=== PATIENT | male | born 1970 | race American Indian/Alaskan Native ===

== ENCOUNTER 2017-07-13 04:38 | Emergency (ER) | payer SELFPAY ==
[2017-07-13] MEDS ORDERED: ASPIRIN PO ONE (05:39)
[2017-07-13 07:36] LABS: Hemoglobin 15.4 gm/dl (11.8-15.2); Mean Corpuscular HGB Conc 33 % (32-34); Mean Corpuscular Hemoglobin 30 pg (28-32); Mean Corpuscular Volume 90 fl (84-94); Red Cell Distribution Width 14.1 % (13.2-15.2)
[2017-07-13 07:40] LABS: BUN/Creatinine Ratio 18; Blood Urea Nitrogen 25 mg/dL (9-20); Hemolysis Index 394
[2017-07-13 09:01] VITALS: BP 172/118
[2017-07-13 10:10] LABS: Basophils % (Manual) 0 % (0.0-1.8); Total Cells Counted 100
[2017-07-13 10:11] LABS: Platelet Estimate Consistent w Auto; RBC Morphology Normal
[2017-07-13 11:02] LABS: Platelet Count 180 K/mm3 (140-440)
--- NOTE | 2017-07-13 18:39 | Emergency Department Report ---
ED Chest Pain HPI - General Chief Complaint: Chest Pain Stated Complaint: CHEST PAIN Time Seen by Provider: 07/13/17 18:21 Source: patient Mode of arrival: Stretcher Limitations: No Limitations - History of Present Illness Initial Comments: Mr. Dela Cruz is a 46-year-old male with history of hypertension, diabetes and seizure disorder. He said at 4 AM he had gradual onset of left-sided chest pain. Left arm numbness. He had associated cough nonproductive. He also had sore throat. +malaise. He also has had chills. He was concerned that his blood pressure was high. He had his blood pressure checked by EMS, systolic blood pressure that time was 210 mmHg. Patient has nondescriptive constant chest pain since 4 AM. Chest pain is not associated with exertion. Chest pain is worse with cough. - Related Data Home Medications Medication Instructions Recorded Confirmed Last Taken levETIRAcetam [Keppra TAB] 1,000 mg PO BID 11/14/15 07/13/17 11/13/15 Clonidine 0.2 mg PO HS 07/13/17 07/13/17 Unknown Lisinopril 20 mg PO HS 07/13/17 07/13/17 Unknown Previous Rx's Medication Instructions Recorded Last Taken Type Acetaminophen/Codeine [Tylenol 2 tab PO Q6H PRN #20 tab 07/13/17 Unknown Rx /Codeine # 3 tab] predniSONE [Deltasone] 60 mg PO QDAY 4 Days tab 07/13/17 Unknown Rx Allergies Allergy/AdvReac Type Severity Reaction Status Date / Time iodine Allergy Hives Verified 02/09/15 13:46 lisinopril Allergy Shortness Verified 07/20/15 21:37 of Breath Penicillins Allergy Rash Verified 02/09/15 13:46 shellfish derived Allergy Itching Verified 02/09/15 13:46 Heart Score - HEART Score History: Slightly suspicious EKG: Normal Age: 45-65 Risk factors: 1-2 risk factors Troponin: < normal limit HEART Score: 2 ED Review of Systems ROS: Stated complaint: CHEST PAIN Other details as noted in HPI Comment: All other systems reviewed and negative Constitutional: denies: fever, malaise Cardiovascular: chest pain ED Past Medical Hx - Past Medical History Hx Hypertension: Yes Hx Congestive Heart Failure: No Hx Diabetes: Yes (controlled by diet) Hx Seizures: Yes Hx Asthma: No Hx COPD: No Additional medical history: VSD MURMUR - Social History Smoking Status: Never Smoker Substance Use Type: None - Medications Home Medications: Home Medications Medication Instructions Recorded Confirmed Last Taken Type levETIRAcetam [Keppra TAB] 1,000 mg PO BID 11/14/15 07/13/17 11/13/15 History Acetaminophen/Codeine [Tylenol 2 tab PO Q6H PRN #20 tab 07/13/17 Unknown Rx /Codeine # 3 tab] Clonidine 0.2 mg PO HS 07/13/17 07/13/17 Unknown History Lisinopril 20 mg PO HS 07/13/17 07/13/17 Unknown History predniSONE [Deltasone] 60 mg PO QDAY 4 Days tab 07/13/17 Unknown Rx ED Physical Exam - General Limitations: No Limitations General appearance: alert, in no apparent distress - Head Head exam: Present: atraumatic, normocephalic - Eye Eye exam: Present: normal appearance - ENT ENT exam: Present: mucous membranes moist - Neck Neck exam: Present: normal inspection - Respiratory Respiratory exam: Present: normal lung sounds bilaterally. Absent: respiratory distress, wheezes, rales, rhonchi - Cardiovascular Cardiovascular Exam: Present: regular rate, normal rhythm, normal heart sounds. Absent: bradycardia, tachycardia, systolic murmur, diastolic murmur, rubs, gallop - GI/Abdominal GI/Abdominal exam: Present: soft, normal bowel sounds. Absent: distended, tenderness, guarding, rebound - Rectal Rectal exam: Present: deferred - Extremities Exam Extremities exam: Present: normal inspection, full ROM, normal capillary refill , other (left arm: Full range of motion, no tenderness no edemac 2+ radial pulse ). Absent: tenderness - Back Exam Back exam: Present: normal inspection - Neurological Exam Neurological exam: Present: alert, oriented X3 - Psychiatric Psychiatric exam: Present: normal affect, normal mood - Skin Skin exam: Present: warm, dry, intact, normal color. Absent: rash ED Course Vital Signs 07/13/17 07/13/17 05:26 08:56 Temperature 98.3 F Pulse Rate 81 75 Respiratory 18 Rate Blood Pressure 170/113 172/118 O2 Sat by Pulse 100 Oximetry JERRY score - Jerry Score Age > 65: (0) No Aspirin use within the Past 7 Days: (0) No 3 or more CAD Risk Factors: (0) No 2 or more Angina events in past 24 hrs: (0) No Known CAD with more than 50% Stenosis: (0) No Elevated Cardiac Markers: (0) No ST Deviation Greater than 0.5mm: (0) No JERRY Score: 0 ED Medical Decision Making - Lab Data Result diagrams: 07/13/17 07:00 07/13/17 07:00 Vital Signs - 24 hr 07/13/17 07/13/17 05:26 08:56 Temperature 98.3 F Pulse Rate 81 75 Respiratory 18 Rate Blood Pressure 170/113 172/118 O2 Sat by Pulse 100 Oximetry Laboratory Results - last 24 hr 07/13/17 07/13/17 07/13/17 07:00 07:00 07:00 WBC 10.4 RBC 5.20 H Hgb 15.4 H Hct 47.0 H MCV 90 MCH 30 MCHC 33 RDW 14.1 Plt Count 180 Add Manual Diff Complete Total Counted 100 Seg Neuts % (Manual) 83.0 H Band Neutrophils % 3.0 Lymphocytes % (Manual) 7.0 L Reactive Lymphs % (Man) 0 Monocytes % (Manual) 5.0 Eosinophils % (Manual) 1.0 Basophils % (Manual) 0 Metamyelocytes % 1.0 Myelocytes % 0 Promyelocytes % 0 Blast Cells % 0 Nucleated RBC % Not Reportable Seg Neutrophils # Man 0.0 L Band Neutrophils # 0.0 Lymphocytes # (Manual) 0.0 L Abs React Lymphs (Man) 0.0 Monocytes # (Manual) 0.0 Eosinophils # (Manual) 0.0 Basophils # (Manual) 0.0 Metamyelocytes # 0.0 Myelocytes # 0.0 Promyelocytes # 0.0 Blast Cells # 0.0 WBC Morphology Not Reportable Hypersegmented Neuts Not Reportable Hyposegmented Neuts Not Reportable Hypogranular Neuts Not Reportable Smudge Cells Not Reportable Toxic Granulation Not Reportable Toxic Vacuolation Not Reportable Dohle Bodies Not Reportable Pelger-Huet Anomaly Not Reportable Meliza Rods Not Reportable Platelet Estimate Consistent w auto Clumped Platelets Not Reportable Plt Clumps, EDTA Not Reportable Large Platelets Not Reportable Giant Platelets Not Reportable Platelet Satelliting Not Reportable Plt Morphology Comment Not Reportable RBC Morphology Normal Dimorphic RBCs Not Reportable Polychromasia Not Reportable Hypochromasia Not Reportable Poikilocytosis Not Reportable Anisocytosis Not Reportable Microcytosis Not Reportable Macrocytosis Not Reportable Spherocytes Not Reportable Pappenheimer Bodies Not Reportable Sickle Cells Not Reportable Target Cells Not Reportable Tear Drop Cells Not Reportable Ovalocytes Not Reportable Helmet Cells Not Reportable [place] Bodies Not Reportable [place] Rings Not Reportable Eric Cells Not Reportable Bite Cells Not Reportable Crenated Cell Not Reportable Elliptocytes Not Reportable Acanthocytes (Spur) Not Reportable Rouleaux Not Reportable Hemoglobin C Crystals Not Reportable Schistocytes Not Reportable Malaria parasites Not Reportable Kevin Bodies Not Reportable Hem Pathologist Commnt No Sodium 138 Potassium 5.4 H Chloride 100.9 Carbon Dioxide 22 Anion Gap 21 BUN 25 H Creatinine 1.4 Estimated GFR > 60 BUN/Creatinine Ratio 18 Glucose 93 Calcium 9.0 Troponin T < 0.010 < 0.010 07/13/17 11:26 WBC RBC Hgb Hct MCV MCH MCHC RDW Plt Count Add Manual Diff Total Counted Seg Neuts % (Manual) Band Neutrophils % Lymphocytes % (Manual) Reactive Lymphs % (Man) Monocytes % (Manual) Eosinophils % (Manual) Basophils % (Manual) Metamyelocytes % Myelocytes % Promyelocytes % Blast Cells % Nucleated RBC % Seg Neutrophils # Man Band Neutrophils # Lymphocytes # (Manual) Abs React Lymphs (Man) Monocytes # (Manual) Eosinophils # (Manual) Basophils # (Manual) Metamyelocytes # Myelocytes # Promyelocytes # Blast Cells # WBC Morphology Hypersegmented Neuts Hyposegmented Neuts Hypogranular Neuts Smudge Cells Toxic Granulation Toxic Vacuolation Dohle Bodies Pelger-Huet Anomaly Meliza Rods Platelet Estimate Clumped Platelets Plt Clumps, EDTA Large Platelets Giant Platelets Platelet Satelliting Plt Morphology Comment RBC Morphology Dimorphic RBCs Polychromasia Hypochromasia Poikilocytosis Anisocytosis Microcytosis Macrocytosis Spherocytes Pappenheimer Bodies Sickle Cells Target Cells Tear Drop Cells Ovalocytes Helmet Cells Sheehan-[place] Bodies [place] Rings [place] Cells Bite Cells Crenated Cell Elliptocytes Acanthocytes (Spur) Rouleaux Hemoglobin C Crystals Schistocytes Malaria parasites Kevin Bodies Hem Pathologist Commnt Sodium Potassium Chloride Carbon Dioxide Anion Gap BUN Creatinine Estimated GFR BUN/Creatinine Ratio Glucose Calcium Troponin T < 0.010 - EKG Data 07/13/17 18:40 EKG obtained at 0 519 Normal sinus rhythm rate of 80, nl axis nl intervals no ST elevation unchanged from 11/13/2015 - Medical Decision Making Mr. Dela Cruz presents with atypical chest pain. With associated chills, cough and sore throat I suspect bronchitis versus pleurisy. I will prescribe prednisone burst therapy. Also prescribed Tylenol with codeine for cough and pain I reviewed electronic record. Patient has had 4 previous admissions since 2013 for atypical chest pain. He's had normal cardiac workup including echocardiogram and Lexiscan. Critical care attestation.: If time is entered above; I have spent that time in minutes in the direct care of this critically ill patient, excluding procedure time. ED Disposition Clinical Impression: Pleurisy, Acute bronchitis Disposition: TO HOME OR SELFCARE Is pt being admited?: No Does the pt Need Aspirin: No Condition: Stable Instructions: Acute Bronchitis (ED), Pleurisy (ED) Prescriptions: Acetaminophen/Codeine [Tylenol /Codeine # 3 tab] 2 tab PO Q6H PRN #20 tab PRN Reason: Pain predniSONE [Deltasone] 60 mg PO QDAY 4 Days tab Referrals: KILEY CRESPO MD [Primary Care Provider] - 3-5 Days
== END 2017-07-13 18:58 | disposition home or self-care (01) ==
LOC: ED 04:38
DX: J20.9 Acute bronchitis, unspecified (principal); I10 Essential (primary) hypertension; E11.9 Type 2 diabetes mellitus without complications; Z88.8 Allergy status to other drugs, medicaments and biological substances; Z88.0 Allergy status to penicillin; Z91.013 Allergy to seafood
CPT/HCPCS: 36415; 80048; 84484; 85007; 85025; 93005; 93010; 99284

== ENCOUNTER 2017-10-24 23:39 | Inpatient (IN) | payer OTHER ==
[2017-10-24] MEDS ORDERED: ASPIRIN PO ONE (23:56)
[2017-10-25 00:17] LABS: Basophils % (Auto) 0.4 % (0.0-1.8); Eosinophils % (Auto) 0.6 % (0.0-4.3); Hematocrit 39.3 % (35.5-45.6); Hemoglobin 12.9 gm/dl (11.8-15.2); Lymphocytes # (Auto) 1.5 K/mm3 (1.2-5.4); Mean Corpuscular HGB Conc 33 % (32-34); Mean Corpuscular Hemoglobin 29 pg (28-32); Mean Corpuscular Volume 88 fl (84-94); Monocytes # (Auto) 0.5 K/mm3 (0.0-0.8); Monocytes % (Auto) 8.6 % (0.0-7.3); Platelet Count 195 K/mm3 (140-440); Red Blood Count 4.49 M/mm3 (3.65-5.03); Red Cell Distribution Width 13.9 % (13.2-15.2)
[2017-10-25 00:34] LABS: BUN/Creatinine Ratio 15; Blood Urea Nitrogen 16 mg/dL (9-20); Calcium 9.1 mg/dL (8.4-10.2); Hemolysis Index 32
[2017-10-25] MEDS ORDERED: ASPIRIN ONE (09:37)
--- NOTE | 2017-10-25 09:42 | Emergency Department Report ---
Blank Doc - Documentation Documentation: Vision is a 47-year-old Male with past history of diabetes hypertension and VSD who is presenting with chest pain is states is a tight sensation with shortness of breath and some radiation to the left shoulder as well as decreased ability to move his left upper and lower extremity. Patient states his weakness that is new. Patient states these symptoms have been present for approximately 11 hours. Patient in brief physical exam has 4 out of 5 strength in the left arm and leg. On his cardiac exam he has S1-S2 does have a 3/6 systolic murmur. Patient's laboratory showed that he's had 3 negative troponins EKG is negative for STEMI patient however does exhib some new motor deficits. Patient was made a stroke alert at 942 directly after my examination. Patient had a head CT CTA of the head and neck ordered.
[2017-10-25 10:06] LABS: INR 0.95 (0.87-1.13)
[2017-10-25 10:07] LABS: Partial Thromboplastin Time 30.9 Sec. (24.2-36.6)
--- NOTE | 2017-10-25 10:11 | XRay Report ---
CHEST ONE VIEW INDICATION: Chest pain. COMPARISON: 11/13/2015. FINDINGS: Portable, single, frontal chest radiograph demonstrates normal cardiomediastinal silhouette. Clear lungs. Stable bones, including old healed left second rib possible deformity. CONCLUSION: No acute disease in the chest. Thank you for the opportunity to participate in this patient's care.
--- NOTE | 2017-10-25 10:55 | Emergency Department Report ---
ED General Adult HPI - General Chief complaint: Chest Pain Stated complaint: CP; DIZZINESS Time Seen by Provider: 10/25/17 09:20 Source: patient Mode of arrival: Ambulatory Limitations: No Limitations - History of Present Illness Initial comments: 47-year-old man with history of seizure disorder, hypertension and diet- controlled diabetes mellitus, type II, was being evaluated for left-sided chest pain of approximately 15-30 minutes duration, when further evaluation noted that patient had difficulty using his left upper extremity, with weakness on examination at triage, with 4 out of 5 strength, and left drift, but no other acute findings, with suspicion for minor stroke. Patient sent back for further evaluation. He reports discomfort and stiffness of his left arm, and difficulty raising it. He has no prior history of stroke, no acute injuries, but he has complicated seizure disorder, reporting that he was hospitalized at [facility] a month ago, requiring intubation and paralysis for control of seizures. He currently takes Keppra for his seizures. -: Last night Location: chest, left, upper extremity Severity scale (0 -10): 5 Quality: aching, sharp Consistency: constant, other (stiff, somewhat twitchy) Associated Symptoms: denies other symptoms, chest pain. denies: confusion, cough, diaphoresis, fever/chills, headaches, nausea/vomiting, seizure Treatments Prior to Arrival: none - Related Data Home Medications Medication Instructions Recorded Confirmed Last Taken levETIRAcetam [Keppra TAB] 1,000 mg PO BID 11/14/15 07/13/17 11/13/15 Clonidine 0.2 mg PO HS 07/13/17 07/13/17 Unknown Lisinopril 20 mg PO HS 07/13/17 07/13/17 Unknown Previous Rx's Medication Instructions Recorded Last Taken Type Acetaminophen/Codeine [Tylenol 2 tab PO Q6H PRN #20 tab 07/13/17 Unknown Rx /Codeine # 3 tab] predniSONE [Deltasone] 60 mg PO QDAY 4 Days tab 07/13/17 Unknown Rx Allergies Allergy/AdvReac Type Severity Reaction Status Date / Time iodine Allergy Hives Verified 02/09/15 13:46 lisinopril Allergy Shortness Verified 07/20/15 21:37 of Breath Penicillins Allergy Rash Verified 02/09/15 13:46 shellfish derived Allergy Itching Verified 02/09/15 13:46 ED Review of Systems ROS: Stated complaint: CP; DIZZINESS Other details as noted in HPI Constitutional: denies: fever Eyes: denies: eye pain, vision change ENT: denies: throat pain Respiratory: denies: shortness of breath Cardiovascular: chest pain (left lateral chest wall and left arm). denies: palpitations, dyspnea on exertion, orthopnea, edema, syncope Endocrine: no symptoms reported Gastrointestinal: denies: abdominal pain, nausea, vomiting Musculoskeletal: other (weakness and stiffness left arm, shoulder and elbow) Skin: denies: rash, lesions Neurological: weakness, other (stiffness left arm) Psychiatric: denies: anxiety, depression Hematological/Lymphatic: denies: easy bleeding, easy bruising ED Past Medical Hx - Past Medical History Hx Hypertension: Yes Hx Congestive Heart Failure: No Hx Diabetes: Yes (controlled by diet) Hx Seizures: Yes (recent complicated hospitalization, [facility]) Hx Asthma: No Hx COPD: No Additional medical history: VSD MURMUR - Social History Smoking Status: Never Smoker Substance Use Type: None - Medications Home Medications: Home Medications Medication Instructions Recorded Confirmed Last Taken Type levETIRAcetam [Keppra TAB] 1,000 mg PO BID 11/14/15 07/13/17 11/13/15 History Acetaminophen/Codeine [Tylenol 2 tab PO Q6H PRN #20 tab 07/13/17 Unknown Rx /Codeine # 3 tab] Clonidine 0.2 mg PO HS 07/13/17 07/13/17 Unknown History Lisinopril 20 mg PO HS 07/13/17 07/13/17 Unknown History predniSONE [Deltasone] 60 mg PO QDAY 4 Days tab 07/13/17 Unknown Rx ED Physical Exam - General Limitations: No Limitations General appearance: alert, anxious (mildly apprehensive) - Head Head exam: Present: atraumatic, normocephalic - Eye Eye exam: Present: PERRL, EOMI. Absent: nystagmus - ENT ENT exam: Present: normal exam, mucous membranes moist - Neck Neck exam: Present: normal inspection, full ROM. Absent: tenderness - Respiratory Respiratory exam: Present: normal lung sounds bilaterally - Cardiovascular Cardiovascular Exam: Present: regular rate - GI/Abdominal GI/Abdominal exam: Present: soft. Absent: distended, tenderness, guarding - Rectal Rectal exam: Present: deferred - Extremities Exam Extremities exam: Present: normal inspection, other (decreased sap ppm consultant left hand, but with some stiffness of arm flexors, forearm flexors). Absent: tenderness - Back Exam Back exam: Present: normal inspection - Neurological Exam Neurological exam: Present: alert, oriented X3, CN II-XII intact, motor sensory deficit (weakness left hand, some stiffness, and some resistance to left elbow and shoulder movement, with mild jitteriness) - Psychiatric Psychiatric exam: Present: depressed, agitated, anxious - Skin Skin exam: Present: warm, dry ED Course Vital Signs 10/24/17 10/25/17 10/25/17 23:54 02:58 09:40 Temperature 97.8 F Pulse Rate 72 65 Respiratory 16 12 Rate Blood Pressure 180/105 172/108 Blood Pressure [Left] O2 Sat by Pulse 100 100 Oximetry 10/25/17 11:08 Temperature 98.5 F Pulse Rate 69 Respiratory 20 Rate Blood Pressure Blood Pressure 190/116 [Left] O2 Sat by Pulse 100 Oximetry - Reevaluation(s) Reevaluation #1: 10/25/17 14:40 Patient had seizure activity, generalized, with a prolonged post ictal., With rapid resumption of more limited clonic tonic activity, particularly on the left side and left chest area, which was treated with several rounds of intravenous Ativan, for a total of 6 mg, with patient ultimately ceasing seizure activity. Patient remained postictal at initial examination after lorazepam treatment after 5 minutes. - Consultations Consultation #1: 10/25/17 15:54 Patient findings and treatments discussed with Dr. Deandra Mccarty, and he will admit for intensive care, control of seizures, and further evaluation as necessary ED Medical Decision Making - Lab Data Result diagrams: 10/25/17 00:00 10/25/17 00:00 - EKG Data -: EKG Interpreted by [facility] EKG shows normal: sinus rhythm, axis (normal QRS axis of 69), intervals ( normal QRS intervals, normal QT interval), QRS complexes (LVH by voltage criteria and precordial leads), ST-T waves (minor ST elevation in atypical early repolarization pattern in the early precordial leads V2 and V3.) Rate: normal - Radiology Data Radiology results: report reviewed (chest x-ray shows no acute cardiopulmonary abnormality, incidental note made of healed left second rib fracture) - Medical Decision Making This patient with seizure disorder, and recent hospitalization for a couple. Seizures requiring intubation and paralysis, has had recurrent seizure, with symptoms that were initially worrisome for stroke. Patient is postictal at this time after treatment with lorazepam intravenously, and loading with intravenous Keppra. He will need hospitalization, and intensive care, patient' s findings were discussed with Dr. Mccarty. - Differential Diagnosis stroke, seizure, status epilepticus Critical Care Time: Yes Critical care time in (mins) excluding proc time.: 60 Critical care attestation.: If time is entered above; I have spent that time in minutes in the direct care of this critically ill patient, excluding procedure time. Critical Care Time: 60 minutes of critical care time was provided in assessing and stabilizing this patient, as well as treating his clonic tonic seizure and status epilepticus. ED Disposition Clinical Impression: Seizure disorder, Seizure Disposition: OP ADMIT IP TO THIS HOSP Is pt being admited?: Yes Does the pt Need Aspirin: No Condition: Stable Referrals: PRIMARY CARE, [Primary Care Provider] - 3-5 Days Time of Disposition: 15:44
[2017-10-25] MEDS ORDERED: NORMODYNE IV ONE (11:29)
[2017-10-25] MEDS ORDERED: ATIVAN ONE (13:20)
[2017-10-25] MEDS ORDERED: NACL 0.9% 1000 ML 1,000 ML IV ONE (13:21)
[2017-10-25] MEDS ORDERED: NACL 0.9% 1000 ML 1,000 ML ONE (13:21)
[2017-10-25] MEDS ORDERED: KEPPRA 1,000 MG/NS 0.75% 100ML 1,000 MG/100 ML BAG IV ONE ×2 (13:31→17:25)
[2017-10-25] MEDS: ATIVAN IV PRN ×3 (13:45→20:10)
[2017-10-25] MEDS ORDERED: SODIUM CHLORIDE FLUSH SYRINGE 10 ML IV PRN (15:55)
--- NOTE | 2017-10-25 17:39 | Cat Scan Report ---
FINAL REPORT EXAM: CT HEAD/BRAIN WO CON HISTORY: Stroke symptoms TECHNIQUE: Standard unenhanced CT of the head at 5.0 millimeter axial increments. PRIORS: CT head 07/20/2015 FINDINGS: The ventricular system is normal in size and configuration. There is no evidence for parenchymal volume loss. There is no evidence for mass lesion, mass effect, midline shift, acute intracranial hemorrhage, or acute ischemia/ infarction. No evidence for acute skull fracture is seen. No abnormality in the overlying scalp soft tissues is seen. Visualized paranasal sinuses demonstrate mucosal thickening in the left maxillary sinus and several posterior ethmoid sinuses bilaterally. IMPRESSION: Mild chronic sinusitis of the left maxillary and ethmoid sinuses. No acute intracranial process noted. No change.
--- NOTE | 2017-10-25 18:09 | Cat Scan Report ---
FINAL REPORT EXAM: CT ANGIO HEAD HISTORY: stroke sx TECHNIQUE: Spiral CTA of brain after the uneventful administration of IV contrast. Multiplanar reformations. PRIORS: CT brain of same date. FINDINGS: Normal enhancement of the basilar and bilateral internal carotid arteries and their main intracranial branches. No abnormal aneurysmal dilatation, significant stenosis or apparent occlusion. No parenchymal mass, hemorrhage, midline shift or hydrocephalus. No evidence of acute cortical infarct. No abnormal extra-axial fluid or air collections. No pathologic enhancement. Osseous calvarium grossly intact. IMPRESSION: 1. No acute intracranial findings.
--- NOTE | 2017-10-25 18:14 | Cat Scan Report ---
FINAL REPORT EXAM: CT ANGIO NECK HISTORY: stroke sx TECHNIQUE: Spiral CTA of the neck after the uneventful administration of IV contrast. Multiplanar reformations. PRIORS: None. FINDINGS: Normal enhancement of the bilateral CCAs, ICAs and ECAs. No abnormal aneurysmal dilatation, apparent dissection, significant stenosis or occlusion. Vertebral arteries are patent and symmetric. IMPRESSION: 1. < 50% carotid stenosis by NASCET criteria.
[2017-10-25 21:28] LABS: Amphetamine Screen,Urine PRESUMPTIVE NEGATIVE; Benzodiazepines Screen,Urine PRESUMPTIVE NEGATIVE; Cannabinoid Screen,Urine PRESUMPTIVE NEGATIVE; Cocaine Screen,Urine PRESUMPTIVE NEGATIVE; Methadone Screen,Urine PRESUMPTIVE NEGATIVE; Opiate Screen,Urine PRESUMPTIVE NEGATIVE
[2017-10-25] MEDS: SODIUM CHLORIDE FLUSH SYRINGE 10 ML IV SCH (22:04)
--- NOTE | 2017-10-26 01:00 | History and Physical Report ---
History of Present Illness Date of examination: 10/25/17 Date of admission: 10/25/17 15:55 Medications and Allergies Allergies Allergy/AdvReac Type Severity Reaction Status Date / Time iodine Allergy Hives Verified 02/09/15 13:46 lisinopril Allergy Shortness Verified 07/20/15 21:37 of Breath Penicillins Allergy Rash Verified 02/09/15 13:46 shellfish derived Allergy Itching Verified 02/09/15 13:46 Home Medications Medication Instructions Recorded Confirmed Last Taken Type Amlodipine Besylate [Norvasc] 10 mg PO DAILY 10/25/17 10/25/17 1 Day Ago History ~10/24/17 Keppra TAB 750 mg PO DAILY 10/25/17 10/25/17 10/24/17 History Active Meds: Active Medications Lorazepam (Ativan) 2 mg IV Q1H PRN PRN Reason: Agitation Last Admin: 10/25/17 20:10 Dose: 2 mg Sodium Chloride (Sodium Chloride Flush Syringe 10 Ml) 10 ml IV BID FRANCES Last Admin: 10/25/17 22:04 Dose: 10 ml Sodium Chloride (Sodium Chloride Flush Syringe 10 Ml) 10 ml IV PRN PRN PRN Reason: LINE FLUSH Exam - Constitutional Vitals: Temp Pulse Resp BP Pulse Ox 98.5 F 77 17 150/98 100 10/25/17 15:00 10/25/17 23:30 10/25/17 23:30 10/25/17 23:30 10/25/17 23:30 Results - Labs CBC & Chem 7: 10/25/17 00:00 10/25/17 00:00 Labs: Laboratory Last Values WBC 6.2 K/mm3 (4.5-11.0) 10/25/17 00:00 RBC 4.49 M/mm3 (3.65-5.03) 10/25/17 00:00 Hgb 12.9 gm/dl (11.8-15.2) 10/25/17 00:00 Hct 39.3 % (35.5-45.6) 10/25/17 00:00 MCV 88 fl (84-94) 10/25/17 00:00 MCH 29 pg (28-32) 10/25/17 00:00 MCHC 33 % (32-34) 10/25/17 00:00 RDW 13.9 % (13.2-15.2) 10/25/17 00:00 Plt Count 195 K/mm3 (140-440) 10/25/17 00:00 Lymph % (Auto) 24.0 % (13.4-35.0) 10/25/17 00:00 [place] % (Auto) 8.6 % (0.0-7.3) H 10/25/17 00:00 Eos % (Auto) 0.6 % (0.0-4.3) 10/25/17 00:00 Baso % (Auto) 0.4 % (0.0-1.8) 10/25/17 00:00 Lymph # 1.5 K/mm3 (1.2-5.4) 10/25/17 00:00 [place] # 0.5 K/mm3 (0.0-0.8) 10/25/17 00:00 Eos # 0.0 K/mm3 (0.0-0.4) 10/25/17 00:00 Baso # 0.0 K/mm3 (0.0-0.1) 10/25/17 00:00 Seg Neutrophils % 66.4 % (40.0-70.0) 10/25/17 00:00 Seg Neutrophils # 4.1 K/mm3 (1.8-7.7) 10/25/17 00:00 PT 13.1 Sec. (12.2-14.9) 10/25/17 09:46 INR 0.95 (0.87-1.13) 10/25/17 09:46 APTT 30.9 Sec. (24.2-36.6) 10/25/17 09:46 Sodium 139 mmol/L (137-145) 10/25/17 00:00 Potassium 3.8 mmol/L (3.6-5.0) 10/25/17 00:00 Chloride 101.4 mmol/L (98-107) 10/25/17 00:00 Carbon Dioxide 23 mmol/L (22-30) 10/25/17 00:00 Anion Gap 18 mmol/L 10/25/17 00:00 BUN 16 mg/dL (9-20) 10/25/17 00:00 Creatinine 1.1 mg/dL (0.8-1.5) 10/25/17 00:00 Estimated GFR > 60 ml/min 10/25/17 00:00 BUN/Creatinine Ratio 15 % 10/25/17 00:00 Glucose 102 mg/dL (75-100) H 10/25/17 00:00 POC Glucose 76 (70-105) 10/25/17 22:18 Calcium 9.1 mg/dL (8.4-10.2) 10/25/17 00:00 Troponin T < 0.010 ng/mL (0.00-0.029) 10/25/17 05:54 Urine Opiates Screen Presumptive negative 10/25/17 21:02 Urine Methadone Screen Presumptive negative 10/25/17 21:02 Ur Barbiturates Screen Presumptive negative 10/25/17 21:02 Ur Phencyclidine Scrn Presumptive negative 10/25/17 21:02 Ur Amphetamines Screen Presumptive negative 10/25/17 21:02 U Benzodiazepines Scrn Presumptive negative 10/25/17 21:02 Urine Cocaine Screen Presumptive negative 10/25/17 21:02 U Marijuana (THC) Screen Presumptive negative 10/25/17 21:02 Drugs of Abuse Note Disclamer 10/25/17 21:02
[2017-10-26] MEDS ORDERED: KEPPRA 1,000 MG/NS 0.75% 100ML 0 MG/0 ML BAG IV ONE (02:39)
[2017-10-26] MEDS ORDERED: D50W (25GM) Syringe IV ONE ×2 (03:08→08:42)
[2017-10-26] MEDS: KEPPRA 750 MG in NACL 0.9% 100 ML IV SCH ×2 (03:10→13:29)
[2017-10-26] MEDS: ATIVAN IV PRN ×3 (03:10→21:09)
[2017-10-26] MEDS: HEPARIN SUB-Q SCH ×3 (06:37→21:09)
--- NOTE | 2017-10-26 07:06 | Event Note ---
Date: 10/25/17 See dictated H/p in reports
[2017-10-26] MEDS ORDERED: SODIUM CHLORIDE FLUSH SYRINGE 10 ML IV PRN (07:30)
--- NOTE | 2017-10-26 07:42 | History and Physical Report ---
CHIEF COMPLAINT: 1. Left-sided chest pain. 2. Left upper extremity weakness for one day. HISTORY OF PRESENT ILLNESS: A 47-year-old presents with left-sided chest pain and left upper extremity weakness, which is improved over the course being in the Emergency Room. No prior history of stroke. No acute injuries. The patient has a complicated seizure disorder and was recently admitted to [facility] requiring intubation and the patient was paralyzed for control of seizures. The patient currently takes Keppra for seizures. Chest pain also resolved. PAST MEDICAL HISTORY: Significant for seizure disorder. Also, type 2 diabetes, controlled by diet. Also, a heart murmur. PAST SURGICAL HISTORY: None. SOCIAL HISTORY: He does not smoke. No alcohol, no recreational drugs. FAMILY HISTORY: Significant for hypertension. CURRENT MEDICATIONS: Keppra, lisinopril, clonidine, and prednisone. Prednisone was in the past. REVIEW OF SYSTEMS: Significant for left-sided weakness, which has resolved. It is more of stiffness in the left arm. Also, left-sided chest pain, which has resolved. PHYSICAL EXAMINATION: GENERAL: Young male, cooperative during examination. VITAL SIGNS: Blood pressure is 149/89, temperature is 98.1, pulse is 72, and respirations are 18. HEENT: Unremarkable. Pupils equal and reactive. NECK: Supple, no lymphadenopathy, no thyromegaly. LUNGS: Clear to auscultation and percussion. Good air entry. CARDIOVASCULAR: S1, S2 heard. No gallop, no murmur, no rub. Apical impulse in the left fifth intercostal space and midclavicular line. ABDOMEN: Soft and benign. No hepatosplenomegaly. No guarding, no rigidity. Hernial orifices are normal. EXTREMITIES: Good pedal pulses. No pedal edema. CENTRAL NERVOUS SYSTEM: Alert and oriented x 4. Questionable left upper extremity weakness present. 4/5 power. Reflexes are normal. Gait is normal. SKIN: Normal. LABORATORY DATA: Significant for normal CBC, normal electrolytes. Troponin is normal. Drug screen is negative. CAT scan of the head, neck CTA and head CTA are normal. ASSESSMENT AND PLAN: 1. Chest pain, rule out myocardial infarction, chest pain protocol. Lexiscan in the morning. 2. Transient ischemic attack workup. The patient to get MRI, MRA, echocardiogram, and carotid duplex scan. 3. Hypertension, continue antihypertensives. 4. Seizure disorder, continue Keppra intravenous. Switched to oral Keppra. 5. Deep venous thrombosis prophylaxis, heparin 5000 q.12. JOB# [id number] VSM/NTS
--- NOTE | 2017-10-26 08:48 | Progress Note ---
Assessment and Plan Assessment and plan: 47-year-old -[place] man with past medical history significant for hypertension, seizure, diet controlled diabetes mellitus presented to the emergency department with complaints of chest pain. While in the emergency department patient was complaining of left arm weakness, and patient developed stsus epilepticus Status epilepticus; patient was discharged recently from [facility] after he was admitted for seizure which required mechanical ventilation and muscle paralysis. Patient had 3 episodes of seizure overnight. Patient is currently sedated because of the benzo. Patient is on IV Keppra and when necessary Ativan Neurologist consulted Patient is nothing by mouth because patient is lethargic and his blood sugar was in the 70's and ordered D5 half normal saline Hypertension Chest pain continue with morphine, Lexiscan stress test consulted because of his current condition. - Continue IV hydralazine when necessary DVT prophylaxis - Lovenox Disposition - Continue inpatient care History Interval history: patient has 3episodes of seizure overnight, patient was given Ativan and he said it did not Hospitalist Physical - Physical exam Narrative exam: Not in cardiopulmonary distress. The patient appeared well nourished and normally developed. Vital signs as documented. Head exam is unremarkable. No scleral icterus . Neck is without jugular venous distension, thyromegaly, or carotid bruits. Lungs are clear to auscultation. Cardiac exam reveals regular rate and Rhythm. First and second heart sounds normal. No murmurs, rubs or gallops. Abdominal exam reveals normal bowel sounds, no masses, no organomegaly and no aortic enlargement. Extremities are nonedematous and both femoral and pedal pulses are normal. [employer]: Patient was sedated. - Constitutional Vitals: Temp Pulse Resp BP Pulse Ox 97.5 F L 88 18 174/109 99 10/26/17 03:26 10/26/17 03:26 10/26/17 02:06 10/26/17 03:19 10/26/17 08:30 Results - Labs CBC & Chem 7: 10/25/17 00:00 10/25/17 00:00 Labs: Laboratory Last Values WBC 6.2 K/mm3 (4.5-11.0) 10/25/17 00:00 RBC 4.49 M/mm3 (3.65-5.03) 10/25/17 00:00 Hgb 12.9 gm/dl (11.8-15.2) 10/25/17 00:00 Hct 39.3 % (35.5-45.6) 10/25/17 00:00 MCV 88 fl (84-94) 10/25/17 00:00 MCH 29 pg (28-32) 10/25/17 00:00 MCHC 33 % (32-34) 10/25/17 00:00 RDW 13.9 % (13.2-15.2) 10/25/17 00:00 Plt Count 195 K/mm3 (140-440) 10/25/17 00:00 Lymph % (Auto) 24.0 % (13.4-35.0) 10/25/17 00:00 [place] % (Auto) 8.6 % (0.0-7.3) H 10/25/17 00:00 Eos % (Auto) 0.6 % (0.0-4.3) 10/25/17 00:00 Baso % (Auto) 0.4 % (0.0-1.8) 10/25/17 00:00 Lymph # 1.5 K/mm3 (1.2-5.4) 10/25/17 00:00 [place] # 0.5 K/mm3 (0.0-0.8) 10/25/17 00:00 Eos # 0.0 K/mm3 (0.0-0.4) 10/25/17 00:00 Baso # 0.0 K/mm3 (0.0-0.1) 10/25/17 00:00 Seg Neutrophils % 66.4 % (40.0-70.0) 10/25/17 00:00 Seg Neutrophils # 4.1 K/mm3 (1.8-7.7) 10/25/17 00:00 PT 13.1 Sec. (12.2-14.9) 10/25/17 09:46 INR 0.95 (0.87-1.13) 10/25/17 09:46 APTT 30.9 Sec. (24.2-36.6) 10/25/17 09:46 Sodium 139 mmol/L (137-145) 10/25/17 00:00 Potassium 3.8 mmol/L (3.6-5.0) 10/25/17 00:00 Chloride 101.4 mmol/L (98-107) 10/25/17 00:00 Carbon Dioxide 23 mmol/L (22-30) 10/25/17 00:00 Anion Gap 18 mmol/L 10/25/17 00:00 BUN 16 mg/dL (9-20) 10/25/17 00:00 Creatinine 1.1 mg/dL (0.8-1.5) 10/25/17 00:00 Estimated GFR > 60 ml/min 10/25/17 00:00 BUN/Creatinine Ratio 15 % 10/25/17 00:00 Glucose 102 mg/dL (75-100) H 10/25/17 00:00 POC Glucose 79 (70-105) 10/26/17 08:43 Calcium 9.1 mg/dL (8.4-10.2) 10/25/17 00:00 Troponin T < 0.010 ng/mL (0.00-0.029) 10/25/17 05:54 Urine Opiates Screen Presumptive negative 10/25/17 21:02 Urine Methadone Screen Presumptive negative 10/25/17 21:02 Ur Barbiturates Screen Presumptive negative 10/25/17 21:02 Ur Phencyclidine Scrn Presumptive negative 10/25/17 21:02 Ur Amphetamines Screen Presumptive negative 10/25/17 21:02 U Benzodiazepines Scrn Presumptive negative 10/25/17 21:02 Urine Cocaine Screen Presumptive negative 10/25/17 21:02 U Marijuana (THC) Screen Presumptive negative 10/25/17 21:02 Drugs of Abuse Note Disclamer 10/25/17 21:02
[2017-10-26] MEDS: SODIUM CHLORIDE FLUSH SYRINGE 10 ML IV SCH ×2 (10:09→21:09)
[2017-10-26] MEDS ORDERED: KEPPRA 1,000 MG in NACL 0.9% 100 ML IV SCH (11:50)
[2017-10-26] MEDS: APRESOLINE IV PRN (12:22)
[2017-10-26] MEDS: D5/0.45NS 1,000 ML IV SCH (12:49)
--- NOTE | 2017-10-26 12:52 | Consultation ---
History of Present Illness Consult date: 10/26/17 History of present illness: see my extensive dictated note on this patient he is stable post seizure and ativan controlled it... he can take low dose of morphine for chest wall pain as nurse feels he is unable to swallow and is aspiration risk Medications and Allergies Allergies Allergy/AdvReac Type Severity Reaction Status Date / Time iodine Allergy Hives Verified 02/09/15 13:46 lisinopril Allergy Shortness Verified 07/20/15 21:37 of Breath Penicillins Allergy Rash Verified 02/09/15 13:46 shellfish derived Allergy Itching Verified 02/09/15 13:46 Home Medications Medication Instructions Recorded Confirmed Last Taken Type Amlodipine Besylate [Norvasc] 10 mg PO DAILY 10/25/17 10/25/17 1 Day Ago History ~10/24/17 Keppra TAB 750 mg PO DAILY 10/25/17 10/25/17 10/24/17 History Active Meds: Active Medications Amlodipine Besylate (Norvasc) 10 mg PO DAILY [facility] Heparin Sodium (Porcine) (Heparin) 5,000 unit SUB-Q Q8HR FRANCES Last Admin: 10/26/17 06:37 Dose: 5,000 unit Hydralazine HCl (Apresoline) 10 mg IV Q6H PRN PRN Reason: Keep SBP between 160-185 mm Hg Last Admin: 10/26/17 12:22 Dose: 10 mg Dextrose/Sodium Chloride (D5/0.45ns) 1,000 mls @ 75 mls/hr IV DIRECT FRANCES Levetiracetam 1,000 mg/ Sodium (Chloride) 110 mls @ 400 mls/hr IV Q12HR FRANCES Lorazepam (Ativan) 2 mg IV Q1H PRN PRN Reason: Agitation Last Admin: 10/26/17 12:29 Dose: 2 mg Sodium Chloride (Sodium Chloride Flush Syringe 10 Ml) 10 ml IV BID FRANCES Last Admin: 10/26/17 10:09 Dose: 10 ml Sodium Chloride (Sodium Chloride Flush Syringe 10 Ml) 10 ml IV PRN PRN PRN Reason: LINE FLUSH Sodium Chloride (Sodium Chloride Flush Syringe 10 Ml) 10 ml IV PRN PRN PRN Reason: LINE FLUSH Physical Examination - Vital Signs Vital Signs: Vital Signs Temp Pulse BP Pulse Ox 97.8 F 72 180/105 100 10/24/17 23:54 10/24/17 23:54 10/24/17 23:54 10/24/17 23:54 - Level of Consciousness 1a. Level of Consciousness: alert - LOC Questions 1b. LOC Questions: answers correctly - LOC Command 1c. LOC Commands: performs tasks correctly - Best Gaze 2. Best Gaze: normal - Visual 3. Visual: no visual loss - Facial Palsy 4. Facial Palsy: normal symmetrical movement - Motor Arm 5b. Motor Arm Right: no drift - Motor Leg 6a. Motor Leg Left: no drift - Limb Ataxia 7. Limb Ataxia: absent - Sensory 8. Sensory: mild/moderate sensory loss - Best Language 9. Best Language: no aphasia - Dysarthria 10. Dysarthria: normal - Extinction and Inattention 11. Extinction/Inattention: no abnormality Results - Laboratory Findings CBC and BMP: 10/25/17 00:00 10/25/17 00:00 Abnormal Lab Findings: Abnormal Labs 10/25/17 10/25/17 00:00 00:00 [place] % (Auto) 8.6 H Glucose 102 H
[2017-10-26] MEDS ORDERED: MORPHINE IM ONE (13:00)
[2017-10-26] MEDS ORDERED: KEPPRA 1,000 MG/NS 0.75% 100ML 1,000 MG/100 ML BAG IV ONE (16:00)
[2017-10-26] MEDS: NORVASC PO SCH (17:57)
[2017-10-27] MEDS: D5/0.45NS 1,000 ML IV SCH ×2 (01:18→16:05)
[2017-10-27] MEDS: PERCOCET 5/325 PO PRN (04:13)
[2017-10-27] MEDS: HEPARIN SUB-Q SCH ×3 (05:55→21:14)
[2017-10-27 05:58] LABS: BUN/Creatinine Ratio 6; Blood Urea Nitrogen 7 mg/dL (9-20); Calcium 8.7 mg/dL (8.4-10.2); Chol/HDL Ratio 2.76 %; HDL Cholesterol 46 mg/dL (40-59); Hemolysis Index 2; LDL Cholesterol,Direct 73 mg/dL (50-130)
[2017-10-27] MEDS ORDERED: ATIVAN ONE ×2 (09:11→09:17)
[2017-10-27] MEDS ORDERED: ATIVAN IV ONE (09:33)
--- NOTE | 2017-10-27 11:56 | Progress Note ---
Subjective Date of service: 10/27/17 Interval history: seizure control is better no further seizures reported plan MRI Objective - Vital Sign Vital Signs - 12hr 10/27/17 10/27/17 10/27/17 04:13 05:13 07:40 Temperature 97.7 F Pulse Rate 82 Respiratory 20 18 19 Rate Blood Pressure 148/95 O2 Sat by Pulse 100 Oximetry 10/27/17 08:03 Temperature Pulse Rate Respiratory Rate Blood Pressure O2 Sat by Pulse 100 Oximetry - Laboratory Findings CBC and BMP: 10/25/17 00:00 10/27/17 05:17 Abnormal Lab Findings: Abnormal Labs 10/25/17 10/25/17 10/27/17 00:00 00:00 05:17 [place] % (Auto) 8.6 H Potassium 3.5 L BUN 7 L Glucose 102 H
[2017-10-27] MEDS: KEPPRA 750 MG in NACL 0.9% 100 ML IV SCH ×2 (12:09→21:15)
[2017-10-27] MEDS: NORVASC PO SCH (12:10)
[2017-10-27] MEDS: SODIUM CHLORIDE FLUSH SYRINGE 10 ML IV SCH ×2 (12:11→21:16)
[2017-10-27] MEDS: APRESOLINE IV PRN ×2 (14:02→21:11)
--- NOTE | 2017-10-27 14:15 | Progress Note ---
Assessment and Plan Assessment and plan: 47-year-old -[place] man with past medical history significant for hypertension, seizure, diet controlled diabetes mellitus presented to the emergency department with complaints of chest pain. While in the emergency department patient was complaining of left arm weakness, and patient developed status epilepticus Status epilepticus; patient was discharged recently from [facility] after he was admitted for seizure which required mechanical ventilation and muscle paralysis. Patient had 1 episode of seizure which was aborted with Ativan. Patient is currently sedated because of the benzo. Patient is on IV Keppra and when necessary Ativan Neurologist consulted Hypertension Chest pain continue with morphine, Lexiscan stress test consulted because of his current condition. - Continue IV hydralazine when necessary DVT prophylaxis - Lovenox Disposition - Continue inpatient care History Interval history: patient had an episode of seizure while he went for echo, and he was given Ativan and seizure stopped, he is postictal since then. Hospitalist Physical - Physical exam Narrative exam: Not in cardiopulmonary distress. The patient appeared well nourished and normally developed. Vital signs as documented. Head exam is unremarkable. No scleral icterus . Neck is without jugular venous distension, thyromegaly, or carotid bruits. Lungs are clear to auscultation. Cardiac exam reveals regular rate and Rhythm. First and second heart sounds normal. No murmurs, rubs or gallops. Abdominal exam reveals normal bowel sounds, no masses, no organomegaly and no aortic enlargement. Extremities are nonedematous and both femoral and pedal pulses are normal. 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 - Constitutional Vitals: Temp Pulse Resp BP Pulse Ox 98.7 F 67 19 163/104 100 10/27/17 11:35 10/27/17 14:02 10/27/17 11:35 10/27/17 14:02 10/27/17 10:08 Results - Labs CBC & Chem 7: 10/25/17 00:00 10/27/17 05:17 Labs: Laboratory Last Values WBC 6.2 K/mm3 (4.5-11.0) 10/25/17 00:00 RBC 4.49 M/mm3 (3.65-5.03) 10/25/17 00:00 Hgb 12.9 gm/dl (11.8-15.2) 10/25/17 00:00 Hct 39.3 % (35.5-45.6) 10/25/17 00:00 MCV 88 fl (84-94) 10/25/17 00:00 MCH 29 pg (28-32) 10/25/17 00:00 MCHC 33 % (32-34) 10/25/17 00:00 RDW 13.9 % (13.2-15.2) 10/25/17 00:00 Plt Count 195 K/mm3 (140-440) 10/25/17 00:00 Lymph % (Auto) 24.0 % (13.4-35.0) 10/25/17 00:00 [place] % (Auto) 8.6 % (0.0-7.3) H 10/25/17 00:00 Eos % (Auto) 0.6 % (0.0-4.3) 10/25/17 00:00 Baso % (Auto) 0.4 % (0.0-1.8) 10/25/17 00:00 Lymph # 1.5 K/mm3 (1.2-5.4) 10/25/17 00:00 [place] # 0.5 K/mm3 (0.0-0.8) 10/25/17 00:00 Eos # 0.0 K/mm3 (0.0-0.4) 10/25/17 00:00 Baso # 0.0 K/mm3 (0.0-0.1) 10/25/17 00:00 Seg Neutrophils % 66.4 % (40.0-70.0) 10/25/17 00:00 Seg Neutrophils # 4.1 K/mm3 (1.8-7.7) 10/25/17 00:00 PT 13.1 Sec. (12.2-14.9) 10/25/17 09:46 INR 0.95 (0.87-1.13) 10/25/17 09:46 APTT 30.9 Sec. (24.2-36.6) 10/25/17 09:46 Sodium 140 mmol/L (137-145) 10/27/17 05:17 Potassium 3.5 mmol/L (3.6-5.0) L 10/27/17 05:17 Chloride 105.2 mmol/L (98-107) 10/27/17 05:17 Carbon Dioxide 26 mmol/L (22-30) 10/27/17 05:17 Anion Gap 12 mmol/L 10/27/17 05:17 BUN 7 mg/dL (9-20) L 10/27/17 05:17 Creatinine 1.1 mg/dL (0.8-1.5) 10/27/17 05:17 Estimated GFR > 60 ml/min 10/27/17 05:17 BUN/Creatinine Ratio 6 % 10/27/17 05:17 Glucose 96 mg/dL (75-100) 10/27/17 05:17 POC Glucose 97 (70-105) 10/27/17 11:45 Calcium 8.7 mg/dL (8.4-10.2) 10/27/17 05:17 Troponin T < 0.010 ng/mL (0.00-0.029) 10/27/17 09:49 Triglycerides 84 mg/dL (2-149) 10/27/17 05:17 Cholesterol 127 mg/dL (50-199) 10/27/17 05:17 LDL Cholesterol Direct 73 mg/dL (50-130) 10/27/17 05:17 HDL Cholesterol 46 mg/dL (40-59) 10/27/17 05:17 Cholesterol/HDL Ratio 2.76 % 10/27/17 05:17 Urine Opiates Screen Presumptive negative 10/25/17 21:02 Urine Methadone Screen Presumptive negative 10/25/17 21:02 Ur Barbiturates Screen Presumptive negative 10/25/17 21:02 Ur Phencyclidine Scrn Presumptive negative 10/25/17 21:02 Ur Amphetamines Screen Presumptive negative 10/25/17 21:02 U Benzodiazepines Scrn Presumptive negative 10/25/17 21:02 Urine Cocaine Screen Presumptive negative 10/25/17 21:02 U Marijuana (THC) Screen Presumptive negative 10/25/17 21:02 Drugs of Abuse Note Disclamer 10/25/17 21:02 - Imaging and Cardiology EKG: image reviewed (Normal EKG)
[2017-10-28] MEDS: MORPHINE IV PRN ×3 (00:09→21:09)
[2017-10-28] MEDS: HEPARIN SUB-Q SCH ×3 (05:40→23:42)
[2017-10-28] MEDS: D5/0.45NS 1,000 ML IV SCH ×3 (05:47→23:41)
--- NOTE | 2017-10-28 08:07 | Consultation ---
HISTORY OF PRESENT ILLNESS: The patient is a 47-year-old black male who enters [facility] for evaluation of new onset of seizures. The patient presents at this point. He has a prior history of being diabetes, hypertension, ventricular septal defect, presents with chest pain, tight sensation, shortness of breath. He has had a CT scan of the head and neck, which has been previously done and review of the results of the CTA of the head and neck indicate that he has had no acute intracranial findings. The head CTA and the neck CTA does shows 50% stenosis of the left carotid. CT of the head shows chronic sinusitis of the maxillary sinus, but otherwise no acute intracranial abnormalities are present. Since admission, he had onset of one seizure on seeing him on rounds. He is immediately at this point postictal, but has received Ativan. The patient by history is previously taking Keppra b.i.d., clonidine, lisinopril. His blood pressure was elevated. He is having chest pain at present time. I did instruct the nurse to give him a dose of morphine, which was previously on his MAR. He does not have by history, history of prior stroke, he was hospitalized at [facility] one month ago, intubated and had paralysis because of seizures, he is on Keppra for this at this point. Examination at this point shows he is postictal, but quite responsive after having received Ativan. He has equal movement of all extremities. Cranial nerves 2-12 are intact. Speech clear. Palpation of the chest wall is unremarkable. I do not see he has he any bruises, contusions, or abrasions. No lacerations in the chest wall. No active bleeding was encountered and he is not short of breath. He has no evidence of any aspiration pneumonia; equal breath sounds are present. The patient does not have any evidence of any respiratory distress at this point. IMPRESSION: 1. Suspect his chest pain is likely just simply muscular in origin given the fact he has just had a seizure. 2. He has a seizure disorder, which apparently was known when he was admitted at [facility] previously and had been on Keppra therapy. It is not clear to me exactly why he has seizures. He does have hypertension. The CT scan is negative of the head, probably it would be worthwhile getting an MRI and getting an EEG at some point. I agree with use of Vimpat, Keppra for control of seizures. Ativan seems to have been successful at controlling the most recent seizure about 10 minutes ago. At this point, he seems neurologically quite stable. I do think a transfer to the Intensive Care Unit is indicated at this point, but the patient will be kept under close observation. Information was relayed to the nurse directly. JOB# [id number] MATHEW/SARAH
[2017-10-28 09:11] LABS: BUN/Creatinine Ratio 6; Blood Urea Nitrogen 6 mg/dL (9-20); Calcium 8.8 mg/dL (8.4-10.2); Hemolysis Index 7
[2017-10-28] MEDS: NORVASC PO SCH (09:53)
[2017-10-28] MEDS: KEPPRA 750 MG in NACL 0.9% 100 ML IV SCH ×2 (09:55→23:41)
[2017-10-28] MEDS: SODIUM CHLORIDE FLUSH SYRINGE 10 ML IV SCH ×2 (09:56→21:10)
--- NOTE | 2017-10-28 14:17 | Progress Note ---
Assessment and Plan Assessment and plan: Status epilepticus, improved -Continue IV Keppra and when necessary IV Ativan -Neurology following Acute encephalopathy secondary to the seizure -Resolved Hypertension -Controlled on amlodipine and when necessary IV hydralazine Left-sided chest pain -Serial troponin levels normal -continue PRN IV morphine -Lexiscan stress test canceled by cardiology due to previous inconclusive test DVT prophylaxis: Lovenox Disposition: Discharge patient when medically stable 28 minutes spent coordinating care History Interval history: Patient seen and examined today. He continues to complain of headaches with left-sided chest pain. Hospitalist Physical - Constitutional Vitals: Temp Pulse Resp BP Pulse Ox 98.3 F 88 18 144/92 98 10/28/17 08:11 10/28/17 10:00 10/28/17 08:11 10/28/17 08:11 10/28/17 08:11 General appearance: Present: no acute distress - EENT Eyes: Present: PERRL, EOM intact ENT: hearing intact, clear oral mucosa - Neck Neck: Present: supple - Respiratory Respiratory effort: normal Respiratory: bilateral: CTA - Cardiovascular Rhythm: regular Heart Sounds: Present: S1 & S2 - Extremities Extremities: No edema - Abdominal General gastrointestinal: soft, non-tender, normal bowel sounds - Neurologic Neurologic: CNII-XII intact Results - Labs CBC & Chem 7: 10/25/17 00:00 10/28/17 08:31 Labs: Laboratory Last Values WBC 6.2 K/mm3 (4.5-11.0) 10/25/17 00:00 RBC 4.49 M/mm3 (3.65-5.03) 10/25/17 00:00 Hgb 12.9 gm/dl (11.8-15.2) 10/25/17 00:00 Hct 39.3 % (35.5-45.6) 10/25/17 00:00 MCV 88 fl (84-94) 10/25/17 00:00 MCH 29 pg (28-32) 10/25/17 00:00 MCHC 33 % (32-34) 10/25/17 00:00 RDW 13.9 % (13.2-15.2) 10/25/17 00:00 Plt Count 195 K/mm3 (140-440) 10/25/17 00:00 Lymph % (Auto) 24.0 % (13.4-35.0) 10/25/17 00:00 [place] % (Auto) 8.6 % (0.0-7.3) H 10/25/17 00:00 Eos % (Auto) 0.6 % (0.0-4.3) 10/25/17 00:00 Baso % (Auto) 0.4 % (0.0-1.8) 10/25/17 00:00 Lymph # 1.5 K/mm3 (1.2-5.4) 10/25/17 00:00 [place] # 0.5 K/mm3 (0.0-0.8) 10/25/17 00:00 Eos # 0.0 K/mm3 (0.0-0.4) 10/25/17 00:00 Baso # 0.0 K/mm3 (0.0-0.1) 10/25/17 00:00 Seg Neutrophils % 66.4 % (40.0-70.0) 10/25/17 00:00 Seg Neutrophils # 4.1 K/mm3 (1.8-7.7) 10/25/17 00:00 PT 13.1 Sec. (12.2-14.9) 10/25/17 09:46 INR 0.95 (0.87-1.13) 10/25/17 09:46 APTT 30.9 Sec. (24.2-36.6) 10/25/17 09:46 Sodium 141 mmol/L (137-145) 10/28/17 08:31 Potassium 3.8 mmol/L (3.6-5.0) 10/28/17 08:31 Chloride 104.6 mmol/L (98-107) 10/28/17 08:31 Carbon Dioxide 24 mmol/L (22-30) 10/28/17 08:31 Anion Gap 16 mmol/L 10/28/17 08:31 BUN 6 mg/dL (9-20) L 10/28/17 08:31 Creatinine 1.0 mg/dL (0.8-1.5) 10/28/17 08:31 Estimated GFR > 60 ml/min 10/28/17 08:31 BUN/Creatinine Ratio 6 % 10/28/17 08:31 Glucose 95 mg/dL (75-100) 10/28/17 08:31 POC Glucose 80 (70-105) 10/28/17 12:09 Calcium 8.8 mg/dL (8.4-10.2) 10/28/17 08:31 Phosphorus 2.50 mg/dL (2.5-4.5) 10/28/17 08:31 Magnesium 1.70 mg/dL (1.7-2.3) 10/28/17 08:31 Troponin T < 0.010 ng/mL (0.00-0.029) 10/27/17 09:49 Triglycerides 84 mg/dL (2-149) 10/27/17 05:17 Cholesterol 127 mg/dL (50-199) 10/27/17 05:17 LDL Cholesterol Direct 73 mg/dL (50-130) 10/27/17 05:17 HDL Cholesterol 46 mg/dL (40-59) 10/27/17 05:17 Cholesterol/HDL Ratio 2.76 % 10/27/17 05:17 Urine Opiates Screen Presumptive negative 10/25/17 21:02 Urine Methadone Screen Presumptive negative 10/25/17 21:02 Ur Barbiturates Screen Presumptive negative 10/25/17 21:02 Ur Phencyclidine Scrn Presumptive negative 10/25/17 21:02 Ur Amphetamines Screen Presumptive negative 10/25/17 21:02 U Benzodiazepines Scrn Presumptive negative 10/25/17 21:02 Urine Cocaine Screen Presumptive negative 10/25/17 21:02 U Marijuana (THC) Screen Presumptive negative 10/25/17 21:02 Drugs of Abuse Note Disclamer 10/25/17 21:02
--- NOTE | 2017-10-28 18:16 | Magnetic Resonance Report ---
FINAL REPORT EXAM: MR BRAIN WO CON HISTORY: stroke TECHNIQUE: Multiplanar MRI of the brain. No contrast administered. PRIORS: None. FINDINGS: Brain volume is normal for age. No acute infarct seen on diffusion-weighted imaging. No parenchymal mass, mass-effect, hemorrhage, midline shift or hydrocephalus. No pathologic extra-axial fluid collection. No pineal region or sellar masses. No cerebellar tonsillar herniation. Lobular, marginal mucosal thickening in the left maxillary sinus. Probable small, mucous retention cyst versus polyp in the right posterior ethmoid sinus. IMPRESSION: 1. No acute intracranial findings.
--- NOTE | 2017-10-28 18:21 | Magnetic Resonance Report ---
FINAL REPORT EXAM: MR MRA/MRV HEAD WO CON HISTORY: stroke TECHNIQUE: Multiplanar MRA of [place] of [place]. No contrast administered. PRIORS: CTA brain, 25 Oct 2017. FINDINGS: Normal flow related enhancement in the basilar and bilateral internal carotid arteries and their main intracranial branches. No abnormal aneurysmal dilatation, focal signal dropout or signal void to suggest significant stenosis or apparent occlusion. IMPRESSION: 1. No significant findings.
[2017-10-29] MEDS: HEPARIN SUB-Q SCH ×3 (06:36→22:52)
[2017-10-29] MEDS ORDERED: D50W (25GM) Syringe IV PRN (07:34)
--- NOTE | 2017-10-29 08:52 | Progress Note ---
Assessment and Plan Assessment and plan: 47-year-old -[place] man with past medical history significant for hypertension, seizure, diet controlled diabetes mellitus presented to the emergency department with complaints of chest pain. While in the emergency department patient was complaining of left arm weakness, and patient developed status epilepticus Status epilepticus; patient was discharged recently from [facility] after he was admitted for seizure which required mechanical ventilation and muscle paralysis. Patient is on IV Keppra and when necessary Ativan. No seizure so far. Neurologist consulted Hypertension Chest pain - Recurrent, cardiology consulted, Lexiscan stress test - Continue morphine for pain control DVT prophylaxis - Lovenox Disposition - Continue inpatient care History Interval history: Patient was seen and evaluated this morning,Patient didn't have seizures in the last 48 hrs, patient is complaining of recurrent chest pain. Hospitalist Physical - Physical exam Narrative exam: Not in cardiopulmonary distress. The patient appeared well nourished and normally developed. Vital signs as documented. Head exam is unremarkable. No scleral icterus . Neck is without jugular venous distension, thyromegaly, or carotid bruits. Lungs are clear to auscultation. Cardiac exam reveals regular rate and Rhythm. First and second heart sounds normal. No murmurs, rubs or gallops. Abdominal exam reveals normal bowel sounds, no masses, no organomegaly and no aortic enlargement. Extremities are nonedematous and both femoral and pedal pulses are normal. PR MANAGER: Alert and oriented x3. - Constitutional Vitals: Temp Pulse Resp BP Pulse Ox 98.7 F 70 19 145/84 98 10/29/17 08:05 10/29/17 08:05 10/29/17 08:05 10/29/17 08:05 10/29/17 08:05 General appearance: Present: no acute distress Results - Labs CBC & Chem 7: 10/25/17 00:00 10/28/17 08:31 Labs: Laboratory Last Values WBC 6.2 K/mm3 (4.5-11.0) 10/25/17 00:00 RBC 4.49 M/mm3 (3.65-5.03) 10/25/17 00:00 Hgb 12.9 gm/dl (11.8-15.2) 10/25/17 00:00 Hct 39.3 % (35.5-45.6) 10/25/17 00:00 MCV 88 fl (84-94) 10/25/17 00:00 MCH 29 pg (28-32) 10/25/17 00:00 MCHC 33 % (32-34) 10/25/17 00:00 RDW 13.9 % (13.2-15.2) 10/25/17 00:00 Plt Count 195 K/mm3 (140-440) 10/25/17 00:00 Lymph % (Auto) 24.0 % (13.4-35.0) 10/25/17 00:00 [place] % (Auto) 8.6 % (0.0-7.3) H 10/25/17 00:00 Eos % (Auto) 0.6 % (0.0-4.3) 10/25/17 00:00 Baso % (Auto) 0.4 % (0.0-1.8) 10/25/17 00:00 Lymph # 1.5 K/mm3 (1.2-5.4) 10/25/17 00:00 [place] # 0.5 K/mm3 (0.0-0.8) 10/25/17 00:00 Eos # 0.0 K/mm3 (0.0-0.4) 10/25/17 00:00 Baso # 0.0 K/mm3 (0.0-0.1) 10/25/17 00:00 Seg Neutrophils % 66.4 % (40.0-70.0) 10/25/17 00:00 Seg Neutrophils # 4.1 K/mm3 (1.8-7.7) 10/25/17 00:00 PT 13.1 Sec. (12.2-14.9) 10/25/17 09:46 INR 0.95 (0.87-1.13) 10/25/17 09:46 APTT 30.9 Sec. (24.2-36.6) 10/25/17 09:46 Sodium 141 mmol/L (137-145) 10/28/17 08:31 Potassium 3.8 mmol/L (3.6-5.0) 10/28/17 08:31 Chloride 104.6 mmol/L (98-107) 10/28/17 08:31 Carbon Dioxide 24 mmol/L (22-30) 10/28/17 08:31 Anion Gap 16 mmol/L 10/28/17 08:31 BUN 6 mg/dL (9-20) L 10/28/17 08:31 Creatinine 1.0 mg/dL (0.8-1.5) 10/28/17 08:31 Estimated GFR > 60 ml/min 10/28/17 08:31 BUN/Creatinine Ratio 6 % 10/28/17 08:31 Glucose 95 mg/dL (75-100) 10/28/17 08:31 POC Glucose 87 (70-105) 10/29/17 05:51 Calcium 8.8 mg/dL (8.4-10.2) 10/28/17 08:31 Phosphorus 2.50 mg/dL (2.5-4.5) 10/28/17 08:31 Magnesium 1.70 mg/dL (1.7-2.3) 10/28/17 08:31 Troponin T < 0.010 ng/mL (0.00-0.029) 10/27/17 09:49 Triglycerides 84 mg/dL (2-149) 10/27/17 05:17 Cholesterol 127 mg/dL (50-199) 10/27/17 05:17 LDL Cholesterol Direct 73 mg/dL (50-130) 10/27/17 05:17 HDL Cholesterol 46 mg/dL (40-59) 10/27/17 05:17 Cholesterol/HDL Ratio 2.76 % 10/27/17 05:17 Urine Opiates Screen Presumptive negative 10/25/17 21:02 Urine Methadone Screen Presumptive negative 10/25/17 21:02 Ur Barbiturates Screen Presumptive negative 10/25/17 21:02 Ur Phencyclidine Scrn Presumptive negative 10/25/17 21:02 Ur Amphetamines Screen Presumptive negative 10/25/17 21:02 U Benzodiazepines Scrn Presumptive negative 10/25/17 21:02 Urine Cocaine Screen Presumptive negative 10/25/17 21:02 U Marijuana (THC) Screen Presumptive negative 10/25/17 21:02 Drugs of Abuse Note Disclamer 10/25/17 21:02
[2017-10-29] MEDS: NORVASC PO SCH (09:58)
[2017-10-29] MEDS: KEPPRA 750 MG in NACL 0.9% 100 ML IV SCH (09:59)
[2017-10-29] MEDS: SODIUM CHLORIDE FLUSH SYRINGE 10 ML IV SCH ×2 (10:00→22:59)
[2017-10-29] MEDS: PERCOCET 5/325 PO PRN (10:05)
[2017-10-29] MEDS ORDERED: AMIDATE IV ONE (11:30)
[2017-10-29] MEDS ORDERED: NACL 0.9% 500 ML ONE (11:30)
[2017-10-29] MEDS ORDERED: QUELICIN ONE (11:30)
--- NOTE | 2017-10-29 14:38 | Consultation ---
History of Present Illness Consult date: 10/29/17 Requesting physician: FERDINAND SHELLEY Consult reason: chest pain History of present illness: The pt is a 47 YO male with a past medical history significant for seizure disorder, HTN, recurrent chest pain with normal coronaries, mild AI, VSD. He has been seen by our practice on prior hospitalization. He presented with complaints of chest pain and left-sided weakness for 2 days prior to arrival. He describes his chest pain as a constant, nonexertional left-sided pressure which radiates down his left arm. The pain is associated intermittently with SOB and nausea and vomiting and a "room spinning" sensation. He was initially evaluated in the ED and was made stroke alert at that time due to left upper and lower extremity weakness. Head CTA, brain MRI and MRA showed no acute findings. He was scheduled for lexiscan MPI stress test per the primary team on the morning of 10/26/2017 which was cancelled [address] Dr. Sutton "because there was no clear indication for a MPI given the patient's current condition. Mainly with the patient's strong history of seizure disorder, and poor results obtained form a previous attempt with Lexiscan on 12/18/13, the patient is not a candidate for this procedure." Pt underwent echo here at [facility] on 10/26/2017 and suffered a seizure during the echo. Of note, pt has undergone extensive cardiac evaluation for recurrent chest pain. He had a cardiac cath done at [facility] [place] in 06/2014 which revealed normal coronaries. He had another cardiac cath done at [facility] in 11/2014 which again revealed normal coronaries. He also had a normal cardiac PET in 2012. Cardiac PET done 06/2017 at [place] was normal without evidence of ischemia or scar, EF 57% at rest and 59% at stress. Echo done 06/2017 at [place] showed EF 60%, aortic valve thickened, mild AI, mild LVH, small membranous ventricular septal defect with left to right shunting, mild pulm HTN with RVSP 44mmHg. Echo done 10/26/2017 showed EF 55-60%, impaired relaxation, PFO. Past History Past Medical History: hypertension, seizures, other (mild AI, VSD) Social history: denies: smoking, alcohol abuse, prescription drug abuse Medications and Allergies Allergies Allergy/AdvReac Type Severity Reaction Status Date / Time iodine Allergy Hives Verified 02/09/15 13:46 lisinopril Allergy Shortness Verified 07/20/15 21:37 of Breath Penicillins Allergy Rash Verified 02/09/15 13:46 shellfish derived Allergy Itching Verified 02/09/15 13:46 Home Medications Medication Instructions Recorded Confirmed Last Taken Type Amlodipine Besylate [Norvasc] 10 mg PO DAILY 10/25/17 10/25/17 1 Day Ago History ~10/24/17 Keppra TAB 750 mg PO DAILY 10/25/17 10/25/17 10/24/17 History Active Meds: Active Medications Amlodipine Besylate (Norvasc) 10 mg PO DAILY [facility] Last Admin: 10/29/17 09:58 Dose: 10 mg Dextrose (D50w (25gm) Syringe) 50 ml IV PRN PRN PRN Reason: HYPOGLYCEMIA PROTOCOL Heparin Sodium (Porcine) (Heparin) 5,000 unit SUB-Q Q8HR [facility] Last Admin: 10/29/17 13:38 Dose: 5,000 unit Hydralazine HCl (Apresoline) 10 mg IV Q6H PRN PRN Reason: Keep SBP between 160-185 mm Hg Last Admin: 10/27/17 21:11 Dose: 10 mg Dextrose/Sodium Chloride (D5/0.45ns) 1,000 mls @ 100 mls/hr IV DIRECT [facility] Last Admin: 10/28/17 23:41 Dose: 75 mls/hr Levetiracetam (Keppra) 750 mg PO BID FRANCES Lorazepam (Ativan) 2 mg IV Q1H PRN PRN Reason: Agitation Last Admin: 10/26/17 21:09 Dose: 2 mg Morphine Sulfate (Morphine) 2 mg IV Q4H PRN PRN Reason: Pain, Moderate (4-6) Last Admin: 10/28/17 21:09 Dose: 2 mg Oxycodone/Acetaminophen (Percocet 5/325) 1 tab PO Q4H PRN PRN Reason: Pain, Moderate (4-6) Last Admin: 10/29/17 10:05 Dose: 1 tab Sodium Chloride (Sodium Chloride Flush Syringe 10 Ml) 10 ml IV BID [facility] Last Admin: 10/29/17 10:00 Dose: 10 ml Sodium Chloride (Sodium Chloride Flush Syringe 10 Ml) 10 ml IV PRN PRN PRN Reason: LINE FLUSH Sodium Chloride (Sodium Chloride Flush Syringe 10 Ml) 10 ml IV PRN PRN PRN Reason: LINE FLUSH Review of Systems Constitutional: no weight loss, no weight gain, no fever, no chills, no sweats Ears, nose, mouth and throat: no ear pain, no nose pain, no sinus pressure, no sinus pain Cardiovascular: chest pain, shortness of breath, dyspnea on exertion, high blood pressure, no orthopnea, no palpitations, no rapid/irregular heart beat, no edema, no syncope, no lightheadedness, no leg edema Respiratory: shortness of breath, dyspnea on exertion, no cough, no congestion, no wheezing, no pain on inspiration Gastrointestinal: nausea, vomiting, no abdominal pain Genitourinary Male: no dysuria, no hematuria, no flank pain, no discharge, no urinary frequency, no urinary hesitancy Musculoskeletal: other (left-sided weakness), no neck stiffness, no neck pain, no shooting arm pain Integumentary: no rash, no pruritis, no redness, no sores, no wounds Neurological: weakness (left-sided ), seizures, vertigo, no head injury, no syncope, no headaches Psychiatric: no anxiety Endocrine: no cold intolerance, no heat intolerance Hematologic/Lymphatic: no easy bruising, no easy bleeding, no lymphadenopathy Allergic/Immunologic: no urticaria, no wheezing, no persistent infections Physical Examination Vital Signs Temp Pulse BP Pulse Ox 97.8 F 72 180/105 100 10/24/17 23:54 10/24/17 23:54 10/24/17 23:54 10/24/17 23:54 General appearance: no acute distress HEENT: Positive: PERRL, Normocephaly, Mucus Membranes Moist Neck: Positive: neck supple, trachea midline Cardiac: Positive: Reg Rate and Rhythm, S1/S2, Systolic Murmur Lungs: Positive: clear to auscultation Neuro: Positive: Grossly Intact Abdomen: Positive: Soft. Negative: Tender Skin: Positive: Clear. Negative: Rash, Wound Musculoskeletal: No Pain Extremities: Absent: edema Results 10/25/17 00:00 10/28/17 08:31 - Imaging and Cardiology Echo: report reviewed (06/2017 at [place] was normal without evidence of ischemia or scar, EF 57% at rest and 59% at stress. Echo done 06/2017 at [place] showed EF 60%, aortic valve thickened, mild AI, mild LVH, small membranous ventricular septal defect with left to right shunting, mild pulm HTN with RVSP 44mmHg.) Cardiac cath: report reviewed ([facility] [place] in 06/2014 which revealed normal coronaries. He had another cardiac cath done at [facility] in 11/2014 which again revealed normal coronaries. ) EKG: report reviewed, image reviewed EKG interpretations - Telemetry EKG Rhythm: Sinus Rhythm - EKG Sinus rhythms and dysrhythmias: sinus rhythm Chamber hypertrophy or enlargement: left ventricular hypertro Repolarization changes or abnormalities: repolarization abn secondary to ventricular hypertrophy Assessment and Plan Assessment: Chest pain, atypical - recurrent; ECG with NAF; Emma negative for AMI; ACS ruled out H/o normal coronaries Seizure disorder HTN VSD AI Plan: Pt has undergone extensive cardiac evaluation for recurrent atypical chest pain. He had a cardiac cath done at [facility] [place] in 06/2014 which revealed normal coronaries. He had another cardiac cath done at [facility] in 11/2014 which again revealed normal coronaries. He also had a normal cardiac PET in 2012. Cardiac PET done 06/2017 at [place] was normal without evidence of ischemia or scar, EF 57% at rest and 59% at stress. Pt is NOT a candidate for lexiscan MPI stress test at this time as lexiscan lowers seizure threshold. Additionally , no indication for repeat ischemic evaluation at this time given the atypical and recurrent nature of pt's chest pain in setting of ECG with no acute ischemic changes, EMMA negative for AMI, and history of extensive cardiac evaluation. The patient has been seen in conjunction with Dr. Wick who agrees with the assessment and plan of care.
[2017-10-29] MEDS ORDERED: TPN ADULT 2,016 ML IV SCH (20:00)
[2017-10-29] MEDS: MORPHINE IV PRN (22:51)
[2017-10-29] MEDS: KEPPRA PO SCH (22:52)
[2017-10-30] MEDS: MORPHINE IV PRN (05:45)
[2017-10-30] MEDS: HEPARIN SUB-Q SCH (05:46)
[2017-10-30 07:06] LABS: BUN/Creatinine Ratio 10; Blood Urea Nitrogen 9 mg/dL (9-20); Calcium 8.9 mg/dL (8.4-10.2); Hemolysis Index 3
[2017-10-30 08:06] VITALS: BP 156/95
--- NOTE | 2017-10-30 09:24 | Progress Note ---
Assessment and Plan Assessment: Chest pain, atypical - recurrent; currently resolved; ECG with NAF; Emma negative for AMI; ACS ruled out H/o normal coronaries Seizure disorder HTN VSD AI Plan: Pt has undergone extensive cardiac evaluation for recurrent atypical chest pain. He had a cardiac cath done at [facility] in 06/2014 which revealed normal coronaries. He had another cardiac cath done at [facility] in 11/2014 which again revealed normal coronaries. He also had a normal cardiac PET in 2012. Cardiac PET done 06/2017 at [place] was normal without evidence of ischemia or scar, EF 57% at rest and 59% at stress. Pt is NOT a candidate for lexiscan MPI stress test at this time as lexiscan lowers seizure threshold. Additionally , no indication for repeat ischemic evaluation at this time given the atypical and recurrent nature of pt's chest pain in setting of ECG with no acute ischemic changes, EMMA negative for AMI, and history of extensive cardiac evaluation. The patient has been seen in conjunction with Dr. Wick who agrees with the assessment and plan of care. Subjective Date of service: 10/30/17 Principal diagnosis: seizures, chest pain Interval history: Pt resting comfortably in bed. he reports that he had a bout of chest pain and SOB overnight. no current cardiac complaints. Objective Last Vital Signs Temp 97.4 F L 10/30/17 07:44 Pulse 70 10/30/17 07:44 Resp 20 10/30/17 07:44 BP 156/95 10/30/17 07:44 Pulse Ox 96 10/30/17 07:44 - Physical Examination General: No Apparent Distress HEENT: Positive: PERRL, Normocephaly, Mucus Membranes Moist Neck: Positive: neck supple, trachea midline Cardiac: Positive: Reg Rate and Rhythm, S1/S2, Systolic Murmur Lungs: Positive: clear to auscultation Neuro: Positive: Grossly Intact Abdomen: Positive: Soft. Negative: Tender Skin: Positive: Clear. Negative: Rash, Wound Musculoskeletal: No Pain Extremities: Absent: edema - Labs and Meds Comprehensive Metabolic Panel 10/30/17 Range/Units 06:36 Sodium 141 (137-145) mmol/L Potassium 3.7 (3.6-5.0) mmol/L Chloride 106.4 (98-107) mmol/L Carbon Dioxide 25 (22-30) mmol/L BUN 9 (9-20) mg/dL Creatinine 0.9 (0.8-1.5) mg/dL Calcium 8.9 (8.4-10.2) mg/dL - Imaging and Cardiology EKG: report reviewed, image reviewed Echo: report reviewed (06/2017 at [place] was normal without evidence of ischemia or scar, EF 57% at rest and 59% at stress. Echo done 06/2017 at [place] showed EF 60%, aortic valve thickened, mild AI, mild LVH, small membranous ventricular septal defect with left to right shunting, mild pulm HTN with RVSP 44mmHg.) Cardiac cath: report reviewed ([facility] in 06/2014 which revealed normal coronaries. He had another cardiac cath done at [facility] in 11/2014 which again revealed normal coronaries. ) - Telemetry EKG Rhythm: Sinus Rhythm - EKG Sinus rhythms and dysrhythmias: sinus rhythm Chamber hypertrophy or enlargement: left ventricular hypertro Repolarization changes or abnormalities: repolarization abn secondary to ventricular hypertrophy
--- NOTE | 2017-10-30 10:42 | Discharge Summary ---
Providers - Providers Date of Admission: 10/25/17 15:55 Attending physician: FERDINAND SHELLEY MD 10/25/17 15:55 Consult to Dietitian/Nutrition [CONS] Routine Physician Instructions: Reason For Exam: seizure, recurrent Reason for Consult: Write/Manage TPN/PPN 10/26/17 07:12 Occupational Therapy Evaluate and Treat [CONS] Routine Comment: Reason For Exam: Neuro deficits Physical Therapy Evaluation and Treat [CONS] Routine Comment: Reason For Exam: Neuro deficits 10/26/17 08:37 Consult to Physician [CONS] Routine Comment: Consulting Provider: ESTER PRICE Physician Instructions: Reason For Exam: status epilepticus, left sided weakness 10/29/17 14:25 Consult to Physician [CONS] Routine Comment: Consulting Provider: DIANE COUGHLIN Physician Instructions: Reason For Exam: recurrent chest pain Primary care physician: EARLY CHILDHOOD COORDINATOR Hospitalization Reason for admission: status epilepticus, recurrent chest pain Condition: Stable Disposition: HI-01 TO HOME OR SELFCARE Time spent for discharge: 31 minutes - Discharge Diagnoses (1) Status epilepticus Status: Acute (2) Seizure disorder Status: Chronic (3) Atypical chest pain Status: Acute (4) Encephalopathy Status: Acute (5) Left arm pain Status: Acute (6) Unstable angina pectoris Status: Acute (7) Normal coronary arteries Status: Chronic (8) VSD (ventricular septal defect) Status: Chronic Core Measure Documentation - Palliative Care Palliative Care/ Comfort Measures: Not Applicable - Core Measures Any of the following diagnoses?: none Exam - Physical Exam Narrative exam: Not in cardiopulmonary distress. The patient appeared well nourished and normally developed. Vital signs as documented. Head exam is unremarkable. No scleral icterus . Neck is without jugular venous distension, thyromegaly, or carotid bruits. Lungs are clear to auscultation. Cardiac exam reveals regular rate and Rhythm. Holosystolic murmur. Abdominal exam reveals normal bowel sounds, no masses, no organomegaly and no aortic enlargement. Extremities are nonedematous and both femoral and pedal pulses are normal. FACTORY EXPERT: Alert and oriented x3. - Constitutional Vitals: Temp Pulse Resp BP Pulse Ox 97.4 F L 70 20 156/95 96 10/30/17 07:44 10/30/17 07:44 10/30/17 07:44 10/30/17 07:44 10/30/17 09:07 Plan Activity: no restrictions Weight Bearing Status: Full Weight Bearing Diet: low salt Additional Instructions: follow @[facility] in 1-2 weeks Follow up with: PRIMARY CARE, [Primary Care Provider] - 3-5 Days Prescriptions: AtorvaSTATin [Lipitor] 20 mg PO QHS #30 tab Aspirin 81 mg PO DAILY #30 tab.chew oxyCODONE /ACETAMINOPHEN [Percocet 5/325 mg] 1 tab PO Q4H PRN #12 tablet PRN Reason: Pain, Moderate (4-6)
[2017-10-30] MEDS: KEPPRA PO SCH (10:45)
[2017-10-30] MEDS: SODIUM CHLORIDE FLUSH SYRINGE 10 ML IV SCH (10:46)
[2017-10-30] MEDS: NORVASC PO SCH (10:46)
--- NOTE | 2017-10-30 14:09 | Progress Note ---
Subjective Principal diagnosis: seizures, chest pain Objective - Vital Sign Vital Signs - 12hr 10/30/17 10/30/17 10/30/17 05:20 07:44 09:07 Temperature 97.8 F 97.4 F L Pulse Rate 76 70 Respiratory 20 20 Rate Blood Pressure 135/88 156/95 O2 Sat by Pulse 97 96 96 Oximetry - Laboratory Findings CBC and BMP: 10/25/17 00:00 10/30/17 06:36 Abnormal Lab Findings: Abnormal Labs 10/25/17 10/25/17 10/27/17 00:00 00:00 05:17 [place] % (Auto) 8.6 H Potassium 3.5 L BUN 7 L Glucose 102 H 10/28/17 08:31 [place] % (Auto) Potassium BUN 6 L Glucose
--- NOTE | 2017-10-30 14:10 | Progress Note ---
Subjective Date of service: 10/30/17 Principal diagnosis: seizures, chest pain Interval history: follow up note seizure control is excellent at this point continue same treatment Objective - Vital Sign Vital Signs - 12hr 10/30/17 10/30/17 10/30/17 05:20 07:44 09:07 Temperature 97.8 F 97.4 F L Pulse Rate 76 70 Respiratory 20 20 Rate Blood Pressure 135/88 156/95 O2 Sat by Pulse 97 96 96 Oximetry - Laboratory Findings CBC and BMP: 10/25/17 00:00 10/30/17 06:36 Abnormal Lab Findings: Abnormal Labs 10/25/17 10/25/17 10/27/17 00:00 00:00 05:17 [place] % (Auto) 8.6 H Potassium 3.5 L BUN 7 L Glucose 102 H 10/28/17 08:31 [place] % (Auto) Potassium BUN 6 L Glucose
== END 2017-10-30 14:44 | disposition home or self-care (01) | DRG 101 ==
LOC: ED 23:39 → CC1 10-25 15:55 → 3A 10-26 01:22
PROVIDERS: ADMIT Internal Medicine; ATTEND Internal Medicine
DX: G40.901 Epilepsy, unspecified, not intractable, with status epilepticus (principal); Q21.0 Ventricular septal defect; I20.0 Unstable angina; I10 Essential (primary) hypertension; E11.9 Type 2 diabetes mellitus without complications; R07.89 Other chest pain; I35.1 Nonrheumatic aortic (valve) insufficiency; E87.6 Hypokalemia; Z82.49 Family history of ischemic heart disease and other diseases of the circulatory system; Z88.6 Allergy status to analgesic agent; Z91.041 Radiographic dye allergy status; Z88.0 Allergy status to penicillin; Z91.013 Allergy to seafood; Z79.899 Other long term (current) drug therapy
CPT/HCPCS: 36415; 70450; 70496; 70498; 70544; 70551; 71045; 80048; 80061; 80307; 82962; 83735; 84100; 84484; 85025; 85610; 85730; 93005; 93010; 93306; 93880; 94760; 95819; 99285; J0330; J0360; J1644; J1953; J2060; J2270; J7030; J7040; Q9967

== ENCOUNTER 2018-08-28 00:10 | Emergency (ER) | payer OTHER ==
[2018-08-28] MEDS ORDERED: ASPIRIN PO ONE (00:45)
--- NOTE | 2018-08-28 01:19 | XRay Report ---
PROCEDURE: XR CHEST 1V AP TECHNIQUE: Chest radiograph single view. HISTORY: Chest Pain COMPARISONS: None . FINDINGS: Heart: Normal. Mediastinum/Vessels: Normal. Lungs/Pleural space: Normal. Bony thorax: No acute osseous abnormality. Life support devices: None. IMPRESSION: No acute cardiopulmonary abnormality. This document is electronically signed by Sameera De Los Santos DO., August 28 2018 01:17:48 AM ET
[2018-08-28 01:46] LABS: Basophils % (Auto) 0.3 % (0.0-1.8); Eosinophils # (Auto) 0.1 K/mm3 (0.0-0.4); Eosinophils % (Auto) 1.3 % (0.0-4.3); Hematocrit 41.6 % (35.5-45.6); Hemoglobin 13.6 gm/dl (11.8-15.2); Lymphocytes # (Auto) 1.9 K/mm3 (1.2-5.4); Lymphocytes % (Auto) 34.7 % (13.4-35.0); Mean Corpuscular HGB Conc 33 % (32-34); Mean Corpuscular Volume 78 fl (84-94); Monocytes # (Auto) 0.6 K/mm3 (0.0-0.8); Monocytes % (Auto) 10.7 % (0.0-7.3); Platelet Count 228 K/mm3 (140-440); Red Cell Distribution Width 19.2 % (13.2-15.2)
[2018-08-28 02:03] LABS: BUN/Creatinine Ratio 18; Blood Urea Nitrogen 22 mg/dL (9-20); Calcium 9.1 mg/dL (8.4-10.2); Hemolysis Index 8
--- NOTE | 2018-08-28 02:20 | Emergency Department Report ---
ED Chest Pain HPI - General Chief Complaint: Chest Pain Stated Complaint: CP/ZHAO/DIZZINESS/L ARM BREAKOUT Time Seen by Provider: 08/28/18 01:27 Source: patient, family Mode of arrival: Ambulatory Limitations: No Limitations - History of Present Illness Initial Comments: 48-year-old male with history of VSD presents to ED with left-sided chest pain radiating into the left neck and left arm. Patient reports squeezing, sharp pain. Onset at rest. Patient reported shortness of breath associated with this pain. Patient states he has never had chest pain like this before, and has never had a stress test in the past. Denies tobacco, alcohol, drug use. PCP: Nikhil SOTOMAYOR Complaint: chest pain -: hour(s) (1) Onset: during rest Pain Location: left chest Pain Radiation: LUE, neck Severity: moderate Severity scale (0 -10): 7 Quality: sharp, squeezing Consistency: constant Improves With: nothing Worsens With: nothing re: dyspnea Other Symptoms: denies: cough, fever - Related Data Previous Rx's Medication Instructions Recorded Last Taken Type Aspirin [Aspirin TAB] 325 mg PO DAILY #30 tablet 02/24/18 04/25/18 Rx levETIRAcetam [Keppra TAB] 1,000 mg PO BID tablet 02/24/18 04/25/18 Rx Butalb/Acetamin/Caff 50-325-40 2 tab PO Q8HR PRN #30 tablet 04/29/18 Unknown Rx [Fioricet] Carvedilol [Coreg] 3.125 mg PO BID #60 tablet 04/29/18 Unknown Rx Allergies Allergy/AdvReac Type Severity Reaction Status Date / Time iodine Allergy Hives Verified 02/09/15 13:46 lisinopril Allergy Shortness Verified 07/20/15 21:37 of Breath Penicillins Allergy Rash Verified 02/09/15 13:46 shellfish derived Allergy Itching Verified 02/09/15 13:46 Heart Score - HEART Score History: Slightly suspicious EKG: Normal Age: 45-65 Risk factors: 1-2 risk factors Troponin: < normal limit HEART Score: 2 ED Review of Systems ROS: Stated complaint: CP/ZHAO/DIZZINESS/L ARM BREAKOUT Other details as noted in HPI Comment: All other systems reviewed and negative Constitutional: denies: fever Respiratory: shortness of breath Cardiovascular: chest pain Gastrointestinal: nausea Musculoskeletal: other (denies leg pain and swelling) Neurological: headache ED Past Medical Hx - Past Medical History Previous Medical History?: Yes Hx Hypertension: Yes Hx Congestive Heart Failure: No Hx Diabetes: Yes Hx Seizures: Yes Hx Asthma: No Hx COPD: No Additional medical history: VSD MURMUR - Surgical History Past Surgical History?: No - Social History Smoking Status: Never Smoker Substance Use Type: None - Medications Home Medications: Home Medications Medication Instructions Recorded Confirmed Last Taken Type Aspirin [Aspirin TAB] 325 mg PO DAILY #30 tablet 02/24/18 04/27/18 04/25/18 Rx levETIRAcetam [Keppra TAB] 1,000 mg PO BID tablet 02/24/18 04/27/18 04/25/18 Rx Butalb/Acetamin/Caff 50-325-40 2 tab PO Q8HR PRN #30 tablet 04/29/18 Unknown Rx [Fioricet] Carvedilol [Coreg] 3.125 mg PO BID #60 tablet 04/29/18 Unknown Rx ED Physical Exam - General Limitations: No Limitations General appearance: alert, in no apparent distress - Head Head exam: Present: atraumatic, normocephalic - Eye Eye exam: Present: normal appearance - ENT ENT exam: Present: mucous membranes moist - Neck Neck exam: Present: normal inspection - Respiratory Respiratory exam: Present: normal lung sounds bilaterally. Absent: respiratory distress - Cardiovascular Cardiovascular Exam: Present: regular rate, normal rhythm - GI/Abdominal GI/Abdominal exam: Present: soft. Absent: distended, tenderness - Extremities Exam Extremities exam: Present: normal inspection - Neurological Exam Neurological exam: Present: alert, oriented X3 - Psychiatric Psychiatric exam: Present: normal affect, normal mood - Skin Skin exam: Present: warm, dry, intact, normal color. Absent: rash ED Course Vital Signs 08/28/18 08/28/18 08/28/18 00:44 01:21 01:30 Temperature 98 F Pulse Rate 86 81 89 Respiratory 20 14 10 L Rate Blood Pressure 181/102 170/105 O2 Sat by Pulse 100 Oximetry 08/28/18 08/28/18 08/28/18 01:45 02:00 02:15 Temperature Pulse Rate 91 H 84 91 H Respiratory 13 16 12 Rate Blood Pressure 170/105 153/99 153/99 O2 Sat by Pulse Oximetry 08/28/18 08/28/18 08/28/18 02:30 02:45 03:00 Temperature Pulse Rate 80 87 101 H Respiratory 16 15 14 Rate Blood Pressure 162/103 162/103 160/98 O2 Sat by Pulse Oximetry 08/28/18 08/28/18 08/28/18 03:15 03:30 03:45 Temperature Pulse Rate 84 88 87 Respiratory 17 16 17 Rate Blood Pressure 160/98 151/99 151/99 O2 Sat by Pulse Oximetry 08/28/18 04:01 Temperature Pulse Rate 101 H Respiratory 17 Rate Blood Pressure 151/99 O2 Sat by Pulse Oximetry VALDEZ score - Valdez Score Age > 65: (1) Yes Aspirin use within the Past 7 Days: (1) Yes 3 or more CAD Risk Factors: (0) No 2 or more Angina events in past 24 hrs: (1) Yes Known CAD with more than 50% Stenosis: (0) No Elevated Cardiac Markers: (0) No ST Deviation Greater than 0.5mm: (0) No VALDEZ Score: 3 ED Medical Decision Making - Lab Data Result diagrams: 08/28/18 00:58 08/28/18 00:58 - EKG Data -: EKG Interpreted by Ct EKG shows normal: sinus rhythm, axis, intervals, QRS complexes, ST-T waves Rate: normal - EKG Data Interpretation: no acute changes, LVH - Radiology Data Radiology results: report reviewed, image reviewed - Medical Decision Making 48-year-old male presents to ED with report that he had never experienced chest pain such as this. However review the patient's history reveals the patient has had multiple admissions for chest pain, an extensive workup at [place]. Patient unable to undergo stress testing due to inducing seizure activity, however, during last admission for chest pain which was 2 months ago, seafood specialist noted that patient has had 2 normal cardiac cath in 2014, a normal cardiac PET in 2012, and another normal cardiac PET last year. Patient's chest pain sounds very atypical in nature. Today, the patient has EKG with no ST changes, normal troponin 2, normal chest x-ray. Patient is currently pain-free. Will discharge at this time, as patient recently had chest pain admission 2 months ago. Return precautions given. Outpatient follow-up advised. - Differential Diagnosis ACS, pneumonia, pulm edema Critical care attestation.: If time is entered above; I have spent that time in minutes in the direct care of this critically ill patient, excluding procedure time. ED Disposition Clinical Impression: Chest pain Disposition: DC-01 TO HOME OR SELFCARE Is pt being admited?: No Condition: Stable Instructions: Chest Pain (ED) Referrals: CESAR YIN MD [Primary Care Provider] - 3-5 Days PRIMARY CAREMD [Referring] - 3-5 Days Time of Disposition: 04:56
[2018-08-28] MEDS: NITROSTAT SL PRN ×2 (04:10→04:19)
[2018-08-28 05:31] VITALS: BP 155/97
== END 2018-08-28 05:34 | disposition home or self-care (01) ==
LOC: ED 00:10
DX: R07.9 Chest pain, unspecified (principal); I10 Essential (primary) hypertension; E11.9 Type 2 diabetes mellitus without complications
CPT/HCPCS: 36415; 71045; 80048; 84484; 85025; 93005; 93010

== ENCOUNTER 2018-12-20 11:12 | Emergency (ER) | payer OTHER ==
[2018-12-20] MEDS ORDERED: ASPIRIN PO ONE (11:21)
--- NOTE | 2018-12-20 11:22 | Event Note ---
ED Screening Note Date of service: 12/20/18 Time: 11:19 ED Screening Note: This is a 48 y.o. M. that presents to the ER with left sided chest pain radiating to LUE since this morning. PMH of HTN & DM2 PCP at [facility] This initial assessment/diagnostic orders/clinical plan/treatment(s) is/are subject to change based on patients health status, clinical progression and re- assessment by fellow clinical providers in the ED. Further treatment and workup at subsequent clinical providers discretion. Patient/guardian urged not to elope from the ED as their condition may be serious if not clinically assessed and managed. Initial orders include: Labs, EKG, CXR
[2018-12-20 11:42] LABS: Basophils % (Auto) 0.5 % (0.0-1.8); Eosinophils # (Auto) 0.1 K/mm3 (0.0-0.4); Eosinophils % (Auto) 1.7 % (0.0-4.3); Hematocrit 44.6 % (35.5-45.6); Hemoglobin 15.2 gm/dl (11.8-15.2); Lymphocytes # (Auto) 1.9 K/mm3 (1.2-5.4); Lymphocytes % (Auto) 38.2 % (13.4-35.0); Mean Corpuscular HGB Conc 34 % (32-34); Mean Corpuscular Volume 86 fl (84-94); Monocytes # (Auto) 0.4 K/mm3 (0.0-0.8); Monocytes % (Auto) 7.9 % (0.0-7.3); Platelet Count 203 K/mm3 (140-440); Red Cell Distribution Width 16.1 % (13.2-15.2)
--- NOTE | 2018-12-20 11:46 | Emergency Department Report ---
ED Chest Pain HPI - General Chief Complaint: Chest Pain Stated Complaint: CHEST PAIN/HEADACHE/DIZZINESS/SOB Time Seen by Provider: 12/20/18 11:19 Source: patient Mode of arrival: Ambulatory Limitations: No Limitations - History of Present Illness Initial Comments: She is a 48-year-old male past medical history of high blood pressure who presents with chest pain as been going on today that radiates to his left arm. Patient states he occasionally gets chest pain presentation of her head chest pain this severe. Pain is an 8/10 nothing makes it better and nothing makes it worse. Patient says it woke him up from his sleep. Patient has no nausea no v omiting. - Related Data Home Medications Medication Instructions Recorded Confirmed Last Taken Norvasc 10 mg PO DAILY 12/20/18 12/20/18 Unknown levETIRAcetam [Keppra TAB] 500 mg PO BID 12/20/18 12/20/18 Unknown Previous Rx's Medication Instructions Recorded Last Taken Type Aspirin 325 mg PO DAILY #30 tablet 02/24/18 04/25/18 Rx Butalb/Acetamin/Caff 50-325-40 2 tab PO Q8HR PRN #30 tablet 04/29/18 Unknown Rx [Fioricet] Allergies Allergy/AdvReac Type Severity Reaction Status Date / Time iodine Allergy Hives Verified 12/20/18 11:13 lisinopril Allergy Shortness Verified 12/20/18 11:13 of Breath Penicillins Allergy Rash Verified 12/20/18 11:13 shellfish derived Allergy Itching Verified 12/20/18 11:13 Heart Score - HEART Score History: Moderately suspicious EKG: Non-specific Age: 45-65 Risk factors: 1-2 risk factors Troponin: < normal limit HEART Score: 4 ED Review of Systems ROS: Stated complaint: CHEST PAIN/HEADACHE/DIZZINESS/SOB Other details as noted in HPI Constitutional: denies: chills, fever Eyes: denies: eye pain, eye discharge, vision change ENT: denies: ear pain, throat pain Respiratory: denies: cough, shortness of breath, wheezing Cardiovascular: chest pain. denies: palpitations Endocrine: no symptoms reported Gastrointestinal: denies: abdominal pain, nausea, diarrhea Genitourinary: denies: urgency, dysuria Musculoskeletal: denies: back pain, joint swelling, arthralgia Skin: denies: rash, lesions Neurological: denies: headache, weakness, paresthesias Psychiatric: denies: anxiety, depression Hematological/Lymphatic: denies: easy bleeding, easy bruising ED Past Medical Hx - Past Medical History Hx Hypertension: Yes Hx Congestive Heart Failure: No Hx Diabetes: Yes Hx Seizures: Yes Hx Asthma: No Hx COPD: No Additional medical history: VSD MURMUR - Surgical History Past Surgical History?: No - Social History Smoking Status: Never Smoker Substance Use Type: Prescribed - Medications Home Medications: Home Medications Medication Instructions Recorded Confirmed Last Taken Type Aspirin 325 mg PO DAILY #30 tablet 02/24/18 12/20/18 04/25/18 Rx Butalb/Acetamin/Caff 50-325-40 2 tab PO Q8HR PRN #30 tablet 04/29/18 12/20/18 Unknown Rx [Fioricet] Norvasc 10 mg PO DAILY 12/20/18 12/20/18 Unknown History levETIRAcetam [Keppra TAB] 500 mg PO BID 12/20/18 12/20/18 Unknown History ED Physical Exam - General Limitations: No Limitations General appearance: alert, in no apparent distress - Head Head exam: Present: atraumatic, normocephalic - Eye Eye exam: Present: normal appearance - ENT ENT exam: Present: mucous membranes moist - Neck Neck exam: Present: normal inspection - Respiratory Respiratory exam: Present: normal lung sounds bilaterally. Absent: respiratory distress - Cardiovascular Cardiovascular Exam: Present: regular rate, normal rhythm. Absent: systolic murmur, diastolic murmur, rubs, gallop - GI/Abdominal GI/Abdominal exam: Present: soft, normal bowel sounds - Rectal Rectal exam: Present: deferred - Extremities Exam Extremities exam: Present: normal inspection - Back Exam Back exam: Present: normal inspection - Neurological Exam Neurological exam: Present: alert, oriented X3 - Psychiatric Psychiatric exam: Present: normal affect, normal mood - Skin Skin exam: Present: warm, dry, intact, normal color. Absent: rash ED Course Vital Signs 12/20/18 12/20/18 12/20/18 11:18 12:46 14:42 Temperature 98 F Pulse Rate 108 H 88 89 Respiratory 18 16 16 Rate Blood Pressure 200/121 Blood Pressure 189/117 170/111 [Left] O2 Sat by Pulse 99 97 96 Oximetry VALDEZ score - Valdez Score Age > 65: (1) Yes Aspirin use within the Past 7 Days: (1) Yes 3 or more CAD Risk Factors: (0) No 2 or more Angina events in past 24 hrs: (1) Yes Known CAD with more than 50% Stenosis: (0) No Elevated Cardiac Markers: (0) No ST Deviation Greater than 0.5mm: (0) No VALDEZ Score: 3 ED Medical Decision Making - Lab Data Result diagrams: 12/20/18 11:25 12/20/18 11:25 Lab Results 12/20/18 12/20/18 12/20/18 Range/Units 11:25 11:25 14:10 WBC 4.9 (4.5-11.0) K/mm3 RBC 5.20 H (3.65-5.03) M/mm3 Hgb 15.2 (11.8-15.2) gm/dl Hct 44.6 (35.5-45.6) % MCV 86 (84-94) fl MCH 29 (28-32) pg MCHC 34 (32-34) % RDW 16.1 H (13.2-15.2) % Plt Count 203 (140-440) K/mm3 Lymph % (Auto) 38.2 H (13.4-35.0) % [place] % (Auto) 7.9 H (0.0-7.3) % Eos % (Auto) 1.7 (0.0-4.3) % Baso % (Auto) 0.5 (0.0-1.8) % Lymph # 1.9 (1.2-5.4) K/mm3 [place] # 0.4 (0.0-0.8) K/mm3 Eos # 0.1 (0.0-0.4) K/mm3 Baso # 0.0 (0.0-0.1) K/mm3 Seg Neutrophils % 51.7 (40.0-70.0) % Seg Neutrophils # 2.5 (1.8-7.7) K/mm3 Sodium 137 (137-145) mmol/L Potassium 4.7 (3.6-5.0) mmol/L Chloride 104.2 (98-107) mmol/L Carbon Dioxide 22 (22-30) mmol/L Anion Gap 16 mmol/L BUN 14 (9-20) mg/dL Creatinine 1.3 (0.8-1.5) mg/dL Estimated GFR > 60 ml/min BUN/Creatinine Ratio 11 % Glucose 110 H (75-100) mg/dL Calcium 9.3 (8.4-10.2) mg/dL Troponin T < 0.010 < 0.010 (0.00-0.029) ng/mL - EKG Data -: EKG Interpreted by Me - EKG Data 12/20/18 15:24 EKG shows sinus rhythm old bilateral enlargement no ST segment elevation noted T-wave inversion. - Radiology Data Radiology results: report reviewed, image reviewed Chest x-ray: Shows no acute cardiopulmonary disease - Medical Decision Making Chief medical diagnosis: Unstable angina ddx: NSTEMI, GERD I will give IV pain medication, cbc, bmp, troponin and ekg and cxr Critical care attestation.: If time is entered above; I have spent that time in minutes in the direct care of this critically ill patient, excluding procedure time. ED Disposition Clinical Impression: Chest pain Qualifiers: Chest pain type: unspecified Qualified Code(s): R07.9 - Chest pain, unspecified Disposition: -09 OP ADMIT IP TO THIS HOSP Is pt being admited?: Yes Does the pt Need Aspirin: No Condition: Stable Instructions: Chest Pain (ED) Referrals: PRIMARY CARE, [Referring] - 3-5 Days
[2018-12-20] MEDS ORDERED: MORPHINE IV ONE ×2 (11:47→14:17)
--- NOTE | 2018-12-20 11:53 | XRay Report ---
CHEST 1 VIEW INDICATION: Chest Pain. COMPARISON: Report without imaging from 08/28/2018 FINDINGS: Support devices: None. Heart: Within normal limits. Lungs/Pleura: No acute air space or interstitial disease. Additional findings: None. IMPRESSION: 1. No acute findings. Signer Name: Brian Spaulding MD Signed: 12/20/2018 11:49 AM Workstation Name: [id number]
[2018-12-20 12:10] LABS: BUN/Creatinine Ratio 11; Blood Urea Nitrogen 14 mg/dL (9-20); Calcium 9.3 mg/dL (8.4-10.2); Hemolysis Index 90
[2018-12-20 14:43] VITALS: BP 170/111
[2018-12-20] MEDS ORDERED: LOVENOX SUB-Q SCH (16:00)
--- NOTE | 2018-12-20 16:35 | Event Note ---
Date: 12/20/18 Comes in for chest pain Patient seen and evaluated Patient had multiple admissions for chest pain and Had Cardiac cath at [facility] and ECHO in [facility] 05/04 which were normal. Dx Chest pain non specific Costochondritis Htn uncontrolled Will discharge on Losartan 100 mg po qd
[2018-12-21] MEDS ORDERED: LOVENOX SUB-Q SCH (10:00)
== END 2018-12-20 16:57 | disposition admitted as inpatient to this hospital (09) ==
LOC: ED 11:12 → 4A 15:42 → UNDOADMIN 15:42 → ED 16:57
DX: I20.8 Other forms of angina pectoris (principal); R07.89 Other chest pain; I10 Essential (primary) hypertension; E11.9 Type 2 diabetes mellitus without complications; Z91.040 Latex allergy status; Z88.8 Allergy status to other drugs, medicaments and biological substances; Z88.0 Allergy status to penicillin; Z91.013 Allergy to seafood
CPT/HCPCS: 36415; 71045; 80048; 84484; 85025; 93005; 93010; 96374; 96376; 99284; J2270

== ENCOUNTER 2019-08-26 06:38 | Inpatient (IN) | payer OTHER ==
[2019-08-26] MEDS ORDERED: ASPIRIN 325 MG TAB PO ONE ×2 (06:42→08:37)
--- NOTE | 2019-08-26 07:19 | XRay Report ---
CHEST 1 VIEW INDICATION / CLINICAL INFORMATION: Chest Pain. Headache COMPARISON: 12/20/2018 FINDINGS: SUPPORT DEVICES: None. HEART / MEDIASTINUM: No significant abnormality. LUNGS / PLEURA: No significant pulmonary or pleural abnormality. No pneumothorax. ADDITIONAL FINDINGS: No significant additional findings. IMPRESSION: 1. No acute findings. No interval change. Signer Name: Natasha Ho MD Signed: 08/26/2019 7:14 AM Workstation Name: [id number]
[2019-08-26 07:36] LABS: Basophils % (Auto) 0.4 % (0.0-1.8); Eosinophils # (Auto) 0.2 K/mm3 (0.0-0.4); Hematocrit 44.2 % (35.5-45.6); Hemoglobin 15.2 gm/dl (11.8-15.2); Lymphocytes # (Auto) 2.5 K/mm3 (1.2-5.4); Lymphocytes % (Auto) 29.1 % (13.4-35.0); Mean Corpuscular HGB Conc 35 % (32-34); Mean Corpuscular Volume 90 fl (84-94); Monocytes # (Auto) 0.9 K/mm3 (0.0-0.8); Platelet Count 212 K/mm3 (140-440); Red Blood Count 4.89 M/mm3 (3.65-5.03); Red Cell Distribution Width 13.9 % (13.2-15.2)
[2019-08-26 07:56] LABS: BUN/Creatinine Ratio 16; Blood Urea Nitrogen 18 mg/dL (9-20); Calcium 9.9 mg/dL (8.4-10.2); Hemolysis Index 27
--- NOTE | 2019-08-26 08:18 | Emergency Department Report ---
ED Chest Pain HPI - General Chief Complaint: Chest Pain Stated Complaint: CHEST PAIN HEADACHE BLURRED VISION Time Seen by Provider: 08/26/19 08:17 Source: patient Mode of arrival: Ambulatory Limitations: No Limitations - History of Present Illness Initial Comments: This is a 49-year-old man who claims that he has never had chest pain before. He states left-sided chest pain which somewhat radiated to the left shoulder began approximately 1 hour prior to arrival. The chest pain has improved. He had some accompanying headache and blurred vision. He claims to be compliant with his blood pressure medicine. He tells me further that he has never been admitted to the hospital before. He denies homelessness as well. 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 He has multiple peripheral healing sticks in his arms. It looks like he has had at least 2 prior left EJ's. When asked about his lack of peripheral access in the face of no hospitalizations, he now admits that he was admitted at least 3-4 times for seizures at [facility]. He continues to not deny previous work-up for chest pain or history of anything beyond hypertension, diet controlled diabetes and a seizure disorder. In addition the patient denies prior stroke. It does appear that he has a history of prior CVA as well. It appears that the patient's registration status may have been changed. Now his multiple prior admissions here for chest pain are evident. As per 2018 cardiology note: 47-year-old man with a history of hypertension, seizure disorder, diabetes and previous CVA. He presented to the hospital with complaints of dizziness, blurred vision, dysarthria, left facial droop and left arm weakness. CT of the head was negative, he was given a diagnosis of TIA and admitted to the medical floor. Cardiac consultation was requested for a report of chest pain, but the patient denies chest pain and denies any significant angina type symptoms. EKG is in normal sinus rhythm, normal ECG with no acute ST or T-wave mountains. On my examination, he has a 2/6 systolic murmur heard best at the apex. Echocardiogram on this admission reveals a left ventricle ejection fraction 45- 50%, mild aortic, mild mitral regurgitation, negative contrast bubble study. Looking through the patient's records I see had a nuclear stress test canceled. I do not see a cardiac catheterization. We will proceed with medical evaluation. MD Complaint: chest pain -: Gradual Onset: during rest Pain Location: left chest Pain Radiation: LUE Severity: moderate Quality: aching Consistency: now resolved Improves With: nothing Worsens With: nothing re: denies: nausea, vomting, diaphoresis, dyspnea, sense of impending doom Other Symptoms: denies: cough, fever, syncope Treatments Prior to Arrival: none Aspirin use within the Past 7 Days: (0) No - Related Data Previous Rx's Medication Instructions Recorded Last Taken Type Aspirin 325 mg PO DAILY #30 tablet 02/24/18 04/25/18 Rx Butalb/Acetamin/Caff 50-325-40 2 tab PO Q8HR PRN #30 tablet 04/29/18 Unknown Rx [Fioricet 50-325-40] Losartan [Cozaar] 100 mg PO QDAY #30 tablet 12/20/18 Unknown Rx Norvasc 10 mg PO DAILY #30 12/20/18 Unknown Rx levETIRAcetam [Keppra TAB] 750 mg PO BID 30 Days #60 tablet 12/20/18 Unknown Rx Allergies Allergy/AdvReac Type Severity Reaction Status Date / Time iodine Allergy Hives Verified 12/20/18 15:43 lisinopril Allergy Shortness Verified 12/20/18 15:43 of Breath Penicillins Allergy Rash Verified 12/20/18 15:43 shellfish derived Allergy Itching Verified 12/20/18 15:43 Heart Score - HEART Score History: Slightly suspicious EKG: Normal Age: 45-65 Risk factors: 1-2 risk factors Troponin: < normal limit HEART Score: 2 - Critical Actions Critical Actions: 0-3 pts:0.9-1.7%risk of adverse cardiac event.Candidate for discharge ED Review of Systems ROS: Stated complaint: CHEST PAIN HEADACHE BLURRED VISION Other details as noted in HPI Constitutional: denies: chills, fever Eyes: denies: eye pain, eye discharge, vision change ENT: denies: ear pain, throat pain Respiratory: denies: cough, shortness of breath, wheezing Cardiovascular: chest pain. denies: palpitations Endocrine: no symptoms reported Gastrointestinal: denies: abdominal pain, nausea, diarrhea Genitourinary: denies: urgency, dysuria Musculoskeletal: denies: back pain, joint swelling, arthralgia Skin: denies: rash, lesions Neurological: denies: headache, weakness, paresthesias Psychiatric: denies: anxiety, depression Hematological/Lymphatic: denies: easy bleeding, easy bruising ED Past Medical Hx - Past Medical History Previous Medical History?: Yes Hx Hypertension: Yes Hx Congestive Heart Failure: No Hx Diabetes: Yes Hx Seizures: Yes Hx Asthma: No Hx COPD: No Additional medical history: VSD MURMUR - Surgical History Past Surgical History?: No - Social History Smoking Status: Never Smoker Substance Use Type: None - Medications Home Medications: Home Medications Medication Instructions Recorded Confirmed Last Taken Type Aspirin 325 mg PO DAILY #30 tablet 02/24/18 12/20/18 04/25/18 Rx Butalb/Acetamin/Caff 50-325-40 2 tab PO Q8HR PRN #30 tablet 04/29/18 12/20/18 Unknown Rx [Fioricet 50-325-40] Losartan [Cozaar] 100 mg PO QDAY #30 tablet 12/20/18 Unknown Rx Norvasc 10 mg PO DAILY #30 12/20/18 Unknown Rx levETIRAcetam [Keppra TAB] 750 mg PO BID 30 Days #60 tablet 12/20/18 Unknown Rx ED Physical Exam - General Limitations: No Limitations General appearance: alert, in no apparent distress - Head Head exam: Present: atraumatic, normocephalic - Eye Eye exam: Present: normal appearance. Absent: scleral icterus - ENT ENT exam: Present: mucous membranes moist, other (Slight left facial asymmetry, left palpebral fissure is a bit wider than the right.) - Neck Neck exam: Present: normal inspection. Absent: tenderness, meningismus - Respiratory Respiratory exam: Present: normal lung sounds bilaterally. Absent: respiratory distress - Cardiovascular Cardiovascular Exam: Present: regular rate, normal rhythm, systolic murmur. Absent: diastolic murmur, rubs, gallop - GI/Abdominal GI/Abdominal exam: Present: soft, normal bowel sounds. Absent: distended, tenderness, guarding, rebound, rigid - Rectal Rectal exam: Present: deferred - Extremities Exam Extremities exam: Present: normal inspection - Back Exam Back exam: Present: normal inspection - Neurological Exam Neurological exam: Present: alert, oriented X3, CN II-XII intact. Absent: motor sensory deficit - Psychiatric Psychiatric exam: Present: normal affect, normal mood - Skin Skin exam: Present: warm, dry, intact, normal color. Absent: rash ED Course Vital Signs 08/26/19 08/26/19 06:43 07:53 Temperature 97.8 F Pulse Rate 89 81 Respiratory 18 12 Rate Blood Pressure 177/108 Blood Pressure 180/110 [Left] O2 Sat by Pulse 99 100 Oximetry VALDEZ score - Valdez Score Age > 65: (1) Yes Aspirin use within the Past 7 Days: (1) Yes 3 or more CAD Risk Factors: (0) No 2 or more Angina events in past 24 hrs: (1) Yes Known CAD with more than 50% Stenosis: (0) No Elevated Cardiac Markers: (0) No ST Deviation Greater than 0.5mm: (0) No VALDEZ Score: 3 ED Medical Decision Making - Lab Data Result diagrams: 08/26/19 06:47 08/26/19 06:47 Laboratory Results - last 24 hr 08/26/19 08/26/19 08/26/19 06:47 06:47 08:11 WBC 8.6 RBC 4.89 Hgb 15.2 Hct 44.2 MCV 90 MCH 31 MCHC 35 H RDW 13.9 Plt Count 212 Lymph % (Auto) 29.1 [place] % (Auto) 10.0 H Eos % (Auto) 2.0 Baso % (Auto) 0.4 Lymph # 2.5 [place] # 0.9 H Eos # 0.2 Baso # 0.0 Seg Neutrophils % 58.5 Seg Neutrophils # 5.1 Sodium 142 Potassium 3.9 Chloride 105.1 Carbon Dioxide 18 L Anion Gap 23 BUN 18 Creatinine 1.1 Estimated GFR > 60 BUN/Creatinine Ratio 16 Glucose 88 POC Glucose 89 Calcium 9.9 Troponin T < 0.010 Laboratory Results - last 24 hr 08/26/19 08/26/19 08/26/19 06:47 06:47 08:11 WBC 8.6 RBC 4.89 Hgb 15.2 Hct 44.2 MCV 90 MCH 31 MCHC 35 H RDW 13.9 Plt Count 212 Lymph % (Auto) 29.1 [place] % (Auto) 10.0 H Eos % (Auto) 2.0 Baso % (Auto) 0.4 Lymph # 2.5 [place] # 0.9 H Eos # 0.2 Baso # 0.0 Seg Neutrophils % 58.5 Seg Neutrophils # 5.1 Sodium 142 Potassium 3.9 Chloride 105.1 Carbon Dioxide 18 L Anion Gap 23 BUN 18 Creatinine 1.1 Estimated GFR > 60 BUN/Creatinine Ratio 16 Glucose 88 POC Glucose 89 Calcium 9.9 Troponin T < 0.010 - EKG Data -: EKG Interpreted by Me EKG shows normal: sinus rhythm, axis, intervals, QRS complexes, ST-T waves Rate: normal - EKG Data Interpretation: LVH (Suggests LVH) - Radiology Data Radiology results: pending, image reviewed (Chest x-ray and CT head, I do not see any acute findings. Pending radiologist review.) Critical care attestation.: If time is entered above; I have spent that time in minutes in the direct care of this critically ill patient, excluding procedure time. ED Disposition Clinical Impression: VSD (ventricular septal defect), Hypertensive urgency Chest pain Qualifiers: Chest pain type: unspecified Qualified Code(s): R07.9 - Chest pain, unspecified Disposition: DC-09 OP ADMIT IP TO THIS HOSP Is pt being admited?: Yes Does the pt Need Aspirin: Yes Condition: Stable Instructions: Chest Pain (ED) Time of Disposition: 10:12
[2019-08-26 09:31] LABS: INR 1.07 (0.87-1.13); Partial Thromboplastin Time 33.2 Sec. (24.2-36.6)
[2019-08-26 09:44] LABS: Alanine Aminotransferase 22 units/L (7-56); Albumin 3.9 g/dL (3.9-5)
--- NOTE | 2019-08-26 09:44 | Cat Scan Report ---
CT head/brain wo con INDICATION / CLINICAL INFORMATION: 49 years Male; headache/htn. TECHNIQUE: Routine CT head without contrast. All CT scans at this location are performed using CT dos e reduction for ALARA by means of automated exposure control. COMPARISON: None. FINDINGS: BRAIN / INTRACRANIAL CONTENTS: The findings appear most compatible with incidental perivascular space s along the inferior left basal ganglia. Otherwise, the brain appears to demonstrate appropriate atte nuation. The ventricular system is within normal limits in size and configuration. There is no CT zain dence of acute intracranial hemorrhage or significant mass effect. ORBITS: No significant abnormality of visualized orbits. SINUSES / MASTOIDS: This mild opacification along the posterior right ethmoid air cells. CRANIOCERVICAL JUNCTION: No significant abnormality. ADDITIONAL FINDINGS: None. IMPRESSION: 1. There is no CT evidence of acute intracranial process. Signer Name: Parish Galeana MD Signed: 08/26/2019 9:40 AM Workstation Name: [id number]
[2019-08-26 09:49] LABS: Bilirubin,Direct < 0.2 mg/dL (0-0.2)
--- NOTE | 2019-08-26 12:03 | History and Physical Report ---
History of Present Illness Date of examination: 08/26/19 Date of admission: 08/26/19 09:57 Chief complaint: Chest pain Past History Past Medical History: hypertension, seizures, other (VSD) Past Surgical History: denies: No surgical history Social history: full code. denies: smoking, alcohol abuse, IV drug use Family history: CAD Medications and Allergies Allergies Allergy/AdvReac Type Severity Reaction Status Date / Time iodine Allergy Hives Verified 12/20/18 15:43 lisinopril Allergy Shortness Verified 12/20/18 15:43 of Breath Penicillins Allergy Rash Verified 12/20/18 15:43 shellfish derived Allergy Itching Verified 12/20/18 15:43 Home Medications Medication Instructions Recorded Confirmed Last Taken Type Aspirin 325 mg PO DAILY #30 tablet 02/24/18 08/26/19 04/25/18 Rx Butalb/Acetamin/Caff 50-325-40 2 tab PO Q8HR PRN #30 tablet 04/29/18 08/26/19 Unknown Rx [Fioricet 50-325-40] Losartan [Cozaar] 100 mg PO QDAY #30 tablet 12/20/18 08/26/19 Unknown Rx Norvasc 10 mg PO DAILY #30 12/20/18 08/26/19 Unknown Rx levETIRAcetam [Keppra TAB] 750 mg PO BID 30 Days #60 tablet 12/20/18 08/26/19 Unknown Rx Active Meds: Active Medications Amlodipine Besylate (Amlodipine) 10 mg PO QDAY FRANCES Losartan Potassium (Cozaar) 100 mg PO QDAY FRANCES Exam - Physical Exam Narrative exam: GEN: Not in acute distress, lying in bed, obese HEENT: Normocephalic, atraumatic, Neck: supple, No JVD Lungs: Clear , no crackles, heart;S1 and S2 reg, no murmurs, rubs or gallop Abd:soft, non tender, non distended, normal bowel sounds Ext: No edema, no clubbing, no cyanosis, tender right shoulder Neuro: Awake,alert, oriented X 3, no focal neurological signs - Constitutional Vitals: Temp Pulse Resp BP Pulse Ox 97.8 F 78 13 172/110 99 08/26/19 06:43 08/26/19 12:00 08/26/19 12:00 08/26/19 12:00 08/26/19 12:00 Results - Labs CBC & Chem 7: 08/26/19 06:47 08/26/19 06:47 Labs: Abnormal lab results 08/26/19 08/26/19 Range/Units 06:47 06:47 MCHC 35 H (32-34) % Coleman % (Auto) 10.0 H (0.0-7.3) % Coleman # 0.9 H (0.0-0.8) K/mm3 Carbon Dioxide 18 L (22-30) mmol/L Assessment and Plan Chest pain Admit serial troponins Aspirin HTN urgency resume Norvasc SZ disorder
[2019-08-26] MEDS: LOSARTAN 50 MG TAB PO SCH (12:04)
[2019-08-26] MEDS: amLODIPine 10 MG TAB PO SCH (12:06)
[2019-08-26] MEDS ORDERED: ONDANSETRON 4 MG/2 ML INJ IV PRN (16:12)
[2019-08-26] MEDS ORDERED: ACETAMINOPHEN 325 MG TAB PO PRN (16:12)
[2019-08-26] MEDS ORDERED: BUTALB/ACETAMINOPHEN/CAFFEINE TAB PO PRN (16:43)
[2019-08-26] MEDS: MORPHINE 2 MG/1 ML INJ IV PRN ×2 (17:44→21:54)
[2019-08-26 17:50] LABS: Bilirubin,Urine NEG (Negative); Blood,Urine NEG (Negative); Color,Urine Yellow (Yellow); Mucus,Urine FEW /HPF; Urobilinogen,Urine < 2.0 mg/dL (<2.0)
[2019-08-26 17:58] LABS: Amphetamine Screen,Urine PRESUMPTIVE NEGATIVE; Benzodiazepines Screen,Urine PRESUMPTIVE NEGATIVE; Cannabinoid Screen,Urine PRESUMPTIVE NEGATIVE; Cocaine Screen,Urine PRESUMPTIVE NEGATIVE; Methadone Screen,Urine PRESUMPTIVE NEGATIVE; Opiate Screen,Urine PRESUMPTIVE NEGATIVE
[2019-08-26] MEDS: levETIRAcetam 500 MG TAB PO SCH (21:51)
[2019-08-26] MEDS ORDERED: hydrALAZINE 20 MG/1 ML INJ IV PRN (23:55)
[2019-08-27] MEDS: hydrALAZINE 25 MG TAB PO SCH ×3 (05:20→13:46)
[2019-08-27] MEDS ORDERED: ASPIRIN 325 MG TAB PO SCH (10:00)
[2019-08-27] MEDS: LOSARTAN 50 MG TAB PO SCH (10:15)
[2019-08-27] MEDS: levETIRAcetam 500 MG TAB PO SCH (10:15)
[2019-08-27] MEDS: amLODIPine 10 MG TAB PO SCH (10:15)
[2019-08-27] MEDS: MORPHINE 2 MG/1 ML INJ IV PRN (10:16)
--- NOTE | 2019-08-27 11:19 | Consultation ---
History of Present Illness Consult date: 08/27/19 Consult reason: chest pain History of present illness: This is a 49-year old male who presents with chest pain thus this cardiac consultation. Patient associates chest pain that is worse with movement of his right upper extremity. Cardiac iso-enzymes are normal and his ECG is sinus rhythm, LVH with repolarization abnormalities. Patient has no history of coronary artery disease. In fact, he has had extensive cardiac workup. In June of 2014 he had a cardiac cath that revealed normal coronaries. 6 months later, he had another cardiac cath at [facility] which again revealed normal coronaries. Early 2017 he had a cardiac PET scan at [facility] that was also normal. An echocardiogram done late 2017 showed a left ventricular ejection fraction 45-50%. Past History Past Medical History: hypertension, seizures, other (VSD, CVA) Social history: full code. denies: smoking, alcohol abuse, IV drug use Family history: CAD Medications and Allergies Allergies Allergy/AdvReac Type Severity Reaction Status Date / Time iodine Allergy Hives Verified 12/20/18 15:43 lisinopril Allergy Shortness Verified 12/20/18 15:43 of Breath Penicillins Allergy Rash Verified 12/20/18 15:43 shellfish derived Allergy Itching Verified 12/20/18 15:43 Home Medications Medication Instructions Recorded Confirmed Last Taken Type Aspirin 325 mg PO DAILY #30 tablet 02/24/18 08/26/19 04/25/18 Rx Butalb/Acetamin/Caff 50-325-40 2 tab PO Q8HR PRN #30 tablet 04/29/18 08/26/19 Unknown Rx [Fioricet 50-325-40] Losartan [Cozaar] 100 mg PO QDAY #30 tablet 12/20/18 08/26/19 Unknown Rx Norvasc 10 mg PO DAILY #30 12/20/18 08/26/19 Unknown Rx levETIRAcetam [Keppra TAB] 750 mg PO BID 30 Days #60 tablet 12/20/18 08/26/19 Unknown Rx Active Meds: Active Medications Acetaminophen (Tylenol) 650 mg PO Q4H PRN PRN Reason: Pain MILD(1-3)/Fever >100.5/ZHAO Acetaminophen/Butalbital/Caffeine (Fioricet) 2 tab PO Q8HR PRN PRN Reason: Headache Amlodipine Besylate (Amlodipine) 10 mg PO QDAY [facility] Last Admin: 08/27/19 10:15 Dose: 10 mg Documented by: Aspirin (Aspirin) 325 mg PO DAILY [facility] Last Admin: 08/27/19 10:15 Dose: 325 mg Documented by: Hydralazine HCl (Apresoline) 50 mg PO Q8HR [facility] Last Admin: 08/27/19 08:22 Dose: Not Given Documented by: Hydralazine HCl (Apresoline) 10 mg IV Q4H PRN PRN Reason: SBP>160 or DBP>110 Levetiracetam (Keppra) 750 mg PO BID [facility] Last Admin: 08/27/19 10:15 Dose: 750 mg Documented by: Losartan Potassium (Cozaar) 100 mg PO QDAY [facility] Last Admin: 08/27/19 10:15 Dose: 100 mg Documented by: Morphine Sulfate (Morphine) 2 mg IV Q4H PRN PRN Reason: Pain, Moderate (4-6) Last Admin: 08/27/19 10:16 Dose: 2 mg Documented by: Ondansetron HCl (Zofran) 4 mg IV Q8H PRN PRN Reason: Nausea And Vomiting Sodium Chloride (Sodium Chloride Flush Syringe 10 Ml) 10 ml IV BID [facility] Last Admin: 08/27/19 10:16 Dose: 10 ml Documented by: Sodium Chloride (Sodium Chloride Flush Syringe 10 Ml) 10 ml IV PRN PRN PRN Reason: LINE FLUSH Physical Examination Vital Signs Temp Pulse Resp BP Pulse Ox 97.8 F 89 18 177/108 99 08/26/19 06:43 08/26/19 06:43 08/26/19 06:43 08/26/19 06:43 08/26/19 06:43 General appearance: no acute distress HEENT: Positive: PERRL Neck: Positive: trachea midline Cardiac: Positive: Systolic Murmur Lungs: Positive: Decreased Breath Sounds Neuro: Positive: Grossly Intact Extremities: Absent: edema Results 08/26/19 06:47 08/26/19 06:47 Assessment and Plan Chest pain, musculoskeletal Chronic systolic murmur Hx of seizure disorder Prior CVA Hypertension LHC 06/2014 at [facility] revealed normal coronaries. LHC 11/2014 at [facility] revealed normal coronaries. Cardiac PET scan at [facility] 06/2017 was also normal. An echocardiogram done 04/2018 showed a left ventricular ejection fraction 45- 50%. No further cardiac workup indicated.
--- NOTE | 2019-08-27 14:51 | Discharge Summary ---
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 Follow up with: PRIMARY CARE, [Primary Care Provider] - 7 Days
[2019-08-27 18:52] VITALS: BP 150/93
== END 2019-08-27 20:20 | disposition home or self-care (01) | DRG 305 ==
LOC: ED 06:38 → 4A 09:57
PROVIDERS: ADMIT Internal Medicine; ATTEND Internal Medicine
DX: I16.0 Hypertensive urgency (principal); Q21.0 Ventricular septal defect; R07.89 Other chest pain; I10 Essential (primary) hypertension; I25.10 Atherosclerotic heart disease of native coronary artery without angina pectoris; R01.1 Cardiac murmur, unspecified; G40.909 Epilepsy, unspecified, not intractable, without status epilepticus; E11.9 Type 2 diabetes mellitus without complications; Z86.73 Personal history of transient ischemic attack (TIA), and cerebral infarction without residual deficits; Z82.49 Family history of ischemic heart disease and other diseases of the circulatory system; Z91.041 Radiographic dye allergy status; Z91.013 Allergy to seafood; Z88.0 Allergy status to penicillin; Z79.82 Long term (current) use of aspirin; Z79.899 Other long term (current) drug therapy
CPT/HCPCS: 36415; 70450; 71045; 80048; 80076; 80307; 81001; 82962; 83735; 83880; 84484; 85025; 85610; 85730; 93005; 93010; 96374; G0378; J2270

== ENCOUNTER 2020-04-24 00:15 | Emergency (ER) | payer SELFPAY ==
[2020-04-24] MEDS ORDERED: ASPIRIN 325 MG TAB PO ONE (00:18)
[2020-04-24 00:42] LABS: Hematocrit 45.3 % (35.5-45.6); Mean Corpuscular HGB Conc 35 % (32-34); Mean Corpuscular Volume 89 fl (84-94); Platelet Count 217 K/mm3 (140-440); Red Blood Count 5.09 M/mm3 (3.65-5.03); Red Cell Distribution Width 13.9 % (13.2-15.2)
--- NOTE | 2020-04-24 00:47 | XRay Report ---
CHEST 1 VIEW INDICATION / CLINICAL INFORMATION: Chest Pain. COMPARISON: 08/26/2019 FINDINGS: SUPPORT DEVICES: None. HEART / MEDIASTINUM: No significant abnormality. LUNGS / PLEURA: No significant pulmonary or pleural abnormality. No pneumothorax. ADDITIONAL FINDINGS: No significant additional findings. IMPRESSION: 1. No acute findings. No interval change. Signer Name: Natasha Ho MD Signed: 04/24/2020 12:42 AM Workstation Name: [id number]
[2020-04-24 01:04] LABS: BUN/Creatinine Ratio 17; Blood Urea Nitrogen 22 mg/dL (9-20); Calcium 9.8 mg/dL (8.4-10.2); Hemolysis Index 5
[2020-04-24] MEDS ORDERED: ONDANSETRON 4 MG ODT TAB PO ONE (02:30)
[2020-04-24] MEDS ORDERED: ALUM-MAG HYDROXIDE-SIMETHICONE 200-200-20MG/5ML ORAL LIQD 30 ML PO ONE (02:30)
[2020-04-24] MEDS ORDERED: ACETAMINOPHEN 500 MG TAB PO ONE (02:34)
--- NOTE | 2020-04-24 02:41 | Emergency Department Report ---
ED Chest Pain HPI - General Chief Complaint: Chest Pain Stated Complaint: CHEST PAIN Time Seen by Provider: 04/24/20 02:21 Source: patient Mode of arrival: Ambulatory Limitations: No Limitations - History of Present Illness Initial Comments: CC: headache, chest pain HPI: Mr. Dela Cruz is a 49 yo male with hx of HTN, seizure, DM, VSD who presents with left sided headache, left arm pain. Pain began this evening. He felt sweaty. He now has moderately severe sharp stabbing 7/10 chest pain with radiation to left arm. Gradual onset of symptoms. According to EMR, patient has been evaluated for possible TIA and ACS on several previous admissions. CVA has been ruled out. According to cardiology consultation, patient has had 2 cardiac catheterizations at two different hospitals with additional noninvasive ischemis workup. MD Complaint: chest pain -: Gradual, hour(s) (3), This evening Onset: during rest Pain Location: left chest Pain Radiation: LUE Severity: moderate Severity scale (0 -10): 7 Quality: sharp Consistency: constant Improves With: nothing Worsens With: nothing re: nausea, other (headache) - Related Data Previous Rx's Medication Instructions Recorded Last Taken Type Aspirin 325 mg PO DAILY #30 tablet 02/24/18 04/25/18 Rx Butalb/Acetamin/Caff 50-325-40 2 tab PO Q8HR PRN #30 tablet 04/29/18 Unknown Rx [Fioricet 50-325-40] Losartan [Cozaar] 100 mg PO QDAY #30 tablet 12/20/18 Unknown Rx Norvasc 10 mg PO DAILY #30 12/20/18 Unknown Rx levETIRAcetam [Keppra TAB] 750 mg PO BID 30 Days #60 tablet 12/20/18 Unknown Rx Hydralazine HCl 50 mg PO TID #90 tablet 08/27/19 Unknown Rx Allergies Allergy/AdvReac Type Severity Reaction Status Date / Time iodine Allergy Hives Verified 12/20/18 15:43 lisinopril Allergy Shortness Verified 12/20/18 15:43 of Breath Penicillins Allergy Rash Verified 12/20/18 15:43 shellfish derived Allergy Itching Verified 12/20/18 15:43 Heart Score - HEART Score History: Slightly suspicious EKG: Non-specific Age: < 45 Risk factors: 1-2 risk factors Troponin: < normal limit HEART Score: 2 ED Review of Systems ROS: Stated complaint: CHEST PAIN Other details as noted in HPI Comment: All other systems reviewed and negative Constitutional: denies: fever, malaise Cardiovascular: chest pain Gastrointestinal: nausea Neurological: headache. denies: weakness, numbness, paresthesias, confusion ED Past Medical Hx - Past Medical History Previous Medical History?: Yes Hx Hypertension: Yes Hx Congestive Heart Failure: No Hx Diabetes: Yes Hx Seizures: Yes Hx Asthma: No Hx COPD: No Additional medical history: VSD MURMUR - Surgical History Past Surgical History?: No - Social History Smoking Status: Never Smoker Substance Use Type: None - Medications Home Medications: Home Medications Medication Instructions Recorded Confirmed Last Taken Type Aspirin 325 mg PO DAILY #30 tablet 02/24/18 08/26/19 04/25/18 Rx Butalb/Acetamin/Caff 50-325-40 2 tab PO Q8HR PRN #30 tablet 04/29/18 08/26/19 Unknown Rx [Fioricet 50-325-40] Losartan [Cozaar] 100 mg PO QDAY #30 tablet 12/20/18 08/26/19 Unknown Rx Norvasc 10 mg PO DAILY #30 12/20/18 08/26/19 Unknown Rx levETIRAcetam [Keppra TAB] 750 mg PO BID 30 Days #60 tablet 12/20/18 08/26/19 Unknown Rx Hydralazine HCl 50 mg PO TID #90 tablet 08/27/19 Unknown Rx ED Physical Exam - General Limitations: No Limitations General appearance: alert, in no apparent distress - Head Head exam: Present: atraumatic, normocephalic - Eye Eye exam: Present: normal appearance - ENT ENT exam: Present: mucous membranes moist - Neck Neck exam: Present: normal inspection, full ROM - Respiratory Respiratory exam: Present: normal lung sounds bilaterally. Absent: respiratory distress, wheezes, rales, rhonchi - Cardiovascular Cardiovascular Exam: Present: regular rate, normal rhythm, normal heart sounds. Absent: systolic murmur, diastolic murmur, rubs, gallop - GI/Abdominal GI/Abdominal exam: Present: soft, normal bowel sounds. Absent: distended, tenderness, guarding, rebound - Rectal Rectal exam: Present: deferred - Extremities Exam Extremities exam: Present: normal inspection - Neurological Exam Neurological exam: Present: alert, oriented X3 - Psychiatric Psychiatric exam: Present: normal affect, normal mood - Skin Skin exam: Present: warm, dry, intact, normal color. Absent: rash ED Course Vital Signs 04/24/20 02:41 Pulse Rate 103 H Respiratory 19 Rate Blood Pressure 203/126 [Right] O2 Sat by Pulse 99 Oximetry VALDEZ score - Valdez Score Age > 65: (1) Yes Aspirin use within the Past 7 Days: (1) Yes 3 or more CAD Risk Factors: (0) No 2 or more Angina events in past 24 hrs: (1) Yes Known CAD with more than 50% Stenosis: (0) No Elevated Cardiac Markers: (0) No ST Deviation Greater than 0.5mm: (0) No VALDEZ Score: 3 ED Medical Decision Making - Lab Data Result diagrams: 04/24/20 00:25 04/24/20 00:25 Laboratory Results - last 24 hr 04/24/20 04/24/20 00:25 00:25 WBC 10.8 RBC 5.09 H Hgb 16.0 H Hct 45.3 MCV 89 MCH 31 MCHC 35 H RDW 13.9 Plt Count 217 Seg Neutrophils % [employer] Sodium 138 Potassium 3.8 Chloride 103.1 Carbon Dioxide 19 L Anion Gap 20 BUN 22 H Creatinine 1.3 Estimated GFR > 60 BUN/Creatinine Ratio 17 Glucose 188 H Calcium 9.8 Troponin T < 0.010 - EKG Data EKG shows normal: sinus rhythm Rate: tachycardia - EKG Data 04/24/20 02:39 EKG obtained 0017 Sinus tachycardia rate 115 bpm right axis deviation prolonged QTC no ST elevation - Medical Decision Making Mr. Dela Cruz presents with recurrent chest pain and recurrent headache. Patient's had extensive cardiac evaluation which has been negative for acute coronary syndrome. Patient also has history of headache. Patient appears well. I do not suspect life-threatening form of chest pain such as pulmonary embolism or ACS. Heart score is 2. With persistent pain at rest considerations chest wall pain versus GERD. Recurrent headache migraine versus tension headache. No red flags such as sudden onset, neurological deficit Troponin x2 -. Patient is discharged home Critical care attestation.: If time is entered above; I have spent that time in minutes in the direct care of this critically ill patient, excluding procedure time. ED Disposition Clinical Impression: Atypical chest pain, Headache Disposition: - TO HOME OR SELFCARE Is pt being admited?: No Does the pt Need Aspirin: No Condition: Stable Instructions: Chest Pain (ED), Nonspecific Chest Pain, Adult, [id number] Referrals: PRIMARY CARE,MD [Primary Care Provider] - 3-5 Days
[2020-04-24 03:40] VITALS: BP 181/119
[2020-04-24 05:54] LABS: Basophils % (Manual) 0 % (0.0-1.8); Eosinophils % (Manual) 0 % (0.0-4.3); Total Cells Counted 100
[2020-04-24 05:55] LABS: Anisocytosis 1+; Platelet Estimate Consistent w Auto
== END 2020-04-24 04:09 | disposition home or self-care (01) ==
LOC: ED 00:15
DX: R07.89 Other chest pain (principal); R51.9 Headache, unspecified; I10 Essential (primary) hypertension; E11.9 Type 2 diabetes mellitus without complications; Z79.899 Other long term (current) drug therapy; Z86.69 Personal history of other diseases of the nervous system and sense organs; Z88.0 Allergy status to penicillin; Z88.8 Allergy status to other drugs, medicaments and biological substances; Z91.013 Allergy to seafood
CPT/HCPCS: 36415; 71045; 80048; 84484; 85007; 85025; 93005; Q0162